=== PATIENT | male | born 1985 | race Caucasian/White ===

== ENCOUNTER 2016-11-22 16:17 | Emergency (ER) | payer OTHER ==
[2016-11-22] MEDS ORDERED: METOCLOPRAMIDE 5 MG/ML 2 ML VIAL IVP STA (17:25)
[2016-11-22] MEDS ORDERED: SODIUM CHLORIDE 0.9% 1,000 ML IV STA (17:25)
[2016-11-22] MEDS ORDERED: SODIUM CHLORIDE 0.9% 500 ML IV STA (17:25)
--- NOTE | 2016-11-22 17:53 | ED ---
Nausea/Vomiting/Diarrhea HPI - General Chief complaint: Nausea/Vomiting/Diarrhea Stated complaint: Fever, Vomiting Time Seen by Provider: 11/22/16 17:15 Source: patient, RN notes reviewed Mode of arrival: ambulatory Limitations: no limitations - History of Present Illness Initial comments: 31-year-old male presents emergency Department chief complaint nausea vomiting for last 1-2 weeks. Patient states every morning he vomits. Patient states that he does have occasional vomiting throughout the day but states it's on and off. Patient has no abdominal pain. Patient states that he feels very achy and has had hot and cold flashes though he does not have a thermometer and did not know he had a fever. Patient has a temp of 100.9. Patient denies any dysuria or hematuria. He did have a few episodes of diarrhea but very intermittent. Patient denies any cough or cold-like symptoms denies any chest pain or palpitations. Patient had no prior abdominal surgeries. - Related Data Previous Rx's Medication Instructions Recorded Promethazine [Phenergan] 25 mg PO Q6HR #10 tablet 11/22/16 Allergies Allergy/AdvReac Type Severity Reaction Status Date / Time ondansetron Allergy Rash/Hives Verified 11/22/16 18:24 [From Zofran (as hydrochloride)] Review of Systems ROS Statement: Those systems with pertinent positive or pertinent negative responses have been documented in the HPI. ROS Other: All systems not noted in ROS Statement are negative. Past Medical History Past Medical History: No Reported History History of Any Multi-Drug Resistant Organisms: None Reported Past Surgical History: No Surgical Hx Reported Past Psychological History: No Psychological Hx Reported Smoking Status: Current every day smoker Past Alcohol Use History: Occasional Past Drug Use History: None Reported General Exam Limitations: no limitations General appearance: alert, in no apparent distress Head exam: Present: atraumatic, normocephalic, normal inspection Eye exam: Present: normal appearance, PERRL, EOMI. Absent: scleral icterus, conjunctival injection, periorbital swelling ENT exam: Present: normal exam, normal oropharynx, mucous membranes moist Neck exam: Present: normal inspection, full ROM. Absent: tenderness, meningismus, lymphadenopathy Respiratory exam: Present: normal lung sounds bilaterally. Absent: respiratory distress, wheezes, rales, rhonchi, stridor Cardiovascular Exam: Present: regular rate, normal rhythm, normal heart sounds. Absent: systolic murmur, diastolic murmur, rubs, gallop, clicks GI/Abdominal exam: Present: soft, normal bowel sounds. Absent: distended, tenderness, guarding, rebound, rigid Back exam: Absent: CVA tenderness (R), CVA tenderness (L) Neurological exam: Present: alert, oriented X3, CN II-XII intact Skin exam: Present: warm, dry, intact, normal color. Absent: rash Course Vital Signs 11/22/16 11/22/16 11/22/16 16:46 17:53 19:00 Temperature 100.9 F H 101.3 F H 99.5 F Pulse Rate 94 85 80 Respiratory 20 18 16 Rate Blood Pressure 130/81 131/78 127/65 O2 Sat by Pulse 97 97 96 Oximetry Medical Decision Making - Medical Decision Making 31-year-old male presented for nausea morning primarily. Patient's lab work does show mild pancreatitis those have mostly complaints this time. Patient does drink alcohol states he has not been drinking as much as usual. Patient advised to stop drinking alcohol increase his fluid intake. Patient be discharged with Phenergan as he has an ALLERGY to Zofran. Return parameters were discussed. - Lab Data Result diagrams: 11/22/16 18:00 11/22/16 18:00 Lab Results 11/22/16 11/22/16 11/22/16 Range/Units 18:00 18:00 18:00 WBC 8.6 (3.8-10.6) k/uL RBC 5.74 (4.30-5.90) m/uL Hgb 17.8 H (13.0-17.5) gm/dL Hct 50.9 (39.0-53.0) % MCV 88.8 (80.0-100.0) fL MCH 31.0 (25.0-35.0) pg MCHC 34.9 (31.0-37.0) g/dL RDW 14.4 (11.5-15.5) % Plt Count 235 (150-450) k/uL Neutrophils % 59 % Lymphocytes % 30 % Monocytes % 4 % Eosinophils % 2 % Basophils % 1 % Neutrophils # 5.0 (1.3-7.7) k/uL Lymphocytes # 2.6 (1.0-4.8) k/uL Monocytes # 0.4 (0-1.0) k/uL Eosinophils # 0.2 (0-0.7) k/uL Basophils # 0.1 (0-0.2) k/uL Sodium 137 (137-145) mmol/L Potassium 4.2 (3.5-5.1) mmol/L Chloride 104 (98-107) mmol/L Carbon Dioxide 22 (22-30) mmol/L Anion Gap 11 mmol/L BUN 9 (9-20) mg/dL Creatinine 0.85 (0.66-1.25) mg/dL Est GFR (MDRD) Af Amer >60 (>60 ml/min/1.73 sqM) Est GFR (MDRD) Non-Af >60 (>60 ml/min/1.73 sqM) Glucose 91 (74-99) mg/dL Calcium 8.8 (8.4-10.2) mg/dL Total Bilirubin 0.7 (0.2-1.3) mg/dL AST 50 (17-59) U/L ALT 53 (21-72) U/L Alkaline Phosphatase 114 (38-126) U/L Total Protein 7.5 (6.3-8.2) g/dL Albumin 3.9 (3.5-5.0) g/dL Amylase 178 H (30-110) U/L Lipase 670 H (23-300) U/L Urine Color Dark Yellow Urine Appearance Clear (Clear) Urine pH 7.0 (5.0-8.0) Ur Specific [place] 1.028 (1.001-1.035) Urine Protein 1+ H (Negative) Urine Glucose (UA) Negative (Negative) Urine Ketones 2+ H (Negative) Urine Blood Negative (Negative) Urine Nitrite Negative (Negative) Urine Bilirubin 1+ H (Negative) Urine Urobilinogen 4.0 (<2.0) mg/dL Ur Leukocyte Esterase Trace H (Negative) Urine RBC <1 (0-5) /hpf Urine WBC 2 (0-5) /hpf Ur Squamous Epith Cells <1 (0-4) /hpf Urine Mucus Moderate H (None) /hpf Urine Opiates Screen Not Detected (NotDetected) Ur Oxycodone Screen Not Detected (NotDetected) Urine Methadone Screen Not Detected (NotDetected) Ur Propoxyphene Screen Not Detected (NotDetected) Ur Barbiturates Screen Not Detected (NotDetected) U Tricyclic Antidepress Not Detected (NotDetected) Ur Phencyclidine Scrn Not Detected (NotDetected) Ur Amphetamines Screen Not Detected (NotDetected) U Methamphetamines Scrn Not Detected (NotDetected) U Benzodiazepines Scrn Not Detected (NotDetected) Urine Cocaine Screen Not Detected (NotDetected) U Marijuana (THC) Screen Detected H (NotDetected) Serum Alcohol mg/dL 11/22/16 Range/Units 18:00 WBC (3.8-10.6) k/uL RBC (4.30-5.90) m/uL Hgb (13.0-17.5) gm/dL Hct (39.0-53.0) % MCV (80.0-100.0) fL MCH (25.0-35.0) pg MCHC (31.0-37.0) g/dL RDW (11.5-15.5) % Plt Count (150-450) k/uL Neutrophils % % Lymphocytes % % Monocytes % % Eosinophils % % Basophils % % Neutrophils # (1.3-7.7) k/uL Lymphocytes # (1.0-4.8) k/uL Monocytes # (0-1.0) k/uL Eosinophils # (0-0.7) k/uL Basophils # (0-0.2) k/uL Sodium (137-145) mmol/L Potassium (3.5-5.1) mmol/L Chloride (98-107) mmol/L Carbon Dioxide (22-30) mmol/L Anion Gap mmol/L BUN (9-20) mg/dL Creatinine (0.66-1.25) mg/dL Est GFR (MDRD) Af Amer (>60 ml/min/1.73 sqM) Est GFR (MDRD) Non-Af (>60 ml/min/1.73 sqM) Glucose (74-99) mg/dL Calcium (8.4-10.2) mg/dL Total Bilirubin (0.2-1.3) mg/dL AST (17-59) U/L ALT (21-72) U/L Alkaline Phosphatase (38-126) U/L Total Protein (6.3-8.2) g/dL Albumin (3.5-5.0) g/dL Amylase (30-110) U/L Lipase (23-300) U/L Urine Color Urine Appearance (Clear) Urine pH (5.0-8.0) Ur Specific [place] (1.001-1.035) Urine Protein (Negative) Urine Glucose (UA) (Negative) Urine Ketones (Negative) Urine Blood (Negative) Urine Nitrite (Negative) Urine Bilirubin (Negative) Urine Urobilinogen (<2.0) mg/dL Ur Leukocyte Esterase (Negative) Urine RBC (0-5) /hpf Urine WBC (0-5) /hpf Ur Squamous Epith Cells (0-4) /hpf Urine Mucus (None) /hpf Urine Opiates Screen (NotDetected) Ur Oxycodone Screen (NotDetected) Urine Methadone Screen (NotDetected) Ur Propoxyphene Screen (NotDetected) Ur Barbiturates Screen (NotDetected) U Tricyclic Antidepress (NotDetected) Ur Phencyclidine Scrn (NotDetected) Ur Amphetamines Screen (NotDetected) U Methamphetamines Scrn (NotDetected) U Benzodiazepines Scrn (NotDetected) Urine Cocaine Screen (NotDetected) U Marijuana (THC) Screen (NotDetected) Serum Alcohol <10 mg/dL Disposition Clinical Impression: Acute pancreatitis, Nausea & vomiting Disposition: HOME SELF-CARE Condition: Stable Instructions: Acute Nausea and Vomiting (ED), Pancreatitis (ED) Additional Instructions: Please return to the Emergency Department if symptoms worsen or any other concerns. Prescriptions: Promethazine [Phenergan] 25 mg PO Q6HR #10 tablet Referrals: None,Stated [Primary Care Provider] - 1-2 days Time of Disposition: 19:22
[2016-11-22] MEDS ORDERED: ACETAMINOPHEN TAB 500 MG TAB PO STA (18:02)
[2016-11-22 18:15] LABS: Basophils # (A) 0.1 k/uL (0-0.2); Basophils % (A) 1 %; CH 30.8; CHCM 34.8; Eosinophils # (A) 0.2 k/uL (0-0.7); Eosinophils % (A) 2 %; HCT 50.9 % (39.0-53.0); HDW 3.02; HGB 17.8 gm/dL (13.0-17.5); Luc # (Auto) 0.32; Luc % (Auto) 4; Lymphocytes # (A) 2.6 k/uL (1.0-4.8); Lymphocytes % (A) 30 %; MCHC 34.9 g/dL (31.0-37.0); MCV 88.8 fL (80.0-100.0); Mean Platelet Volume 7.2; Monocytes # (A) 0.4 k/uL (0-1.0); Monocytes % (A) 4 %; Neutrophils % (A) 59 %; RBC 5.74 m/uL (4.30-5.90); RDW 14.4 % (11.5-15.5); WBC 8.6 k/uL (3.8-10.6); WBC (Perox) 8.22
[2016-11-22 18:25] LABS: Appearance,Urine Clear (Clear); Bilirubin,Urine 1+ (Negative); Glucose,Urine (UA) Negative (Negative); Ketones,Urine 2+ (Negative); Leukocyte Esterase,Urine Trace (Negative); Mucus,Urine Moderate /hpf; Nitrite,Urine Negative (Negative); Particle Count 6963; Protein,Urine 1+ (Negative); RBC,Urine <1 /hpf (0-5); Specific Gravity,Urine 1.028 (1.001-1.035); Squamous Epithelial Cell,Urine <1 /hpf (0-4); UA Billing (MACRO vs. MICRO) MICRO; WBC,Urine 2 /hpf (0-5)
[2016-11-22 18:26] LABS: ALT 53 U/L (21-72); AST 50 U/L (17-59); Alkaline Phosphatase 114 U/L (38-126); Amylase 178 U/L (30-110); Anion Gap 11 mmol/L; Blood Urea Nitrogen 9 mg/dL (9-20); Calcium 8.8 mg/dL (8.4-10.2); Carbon Dioxide 22 mmol/L (22-30); Chloride 104 mmol/L (98-107); Glucose 91 mg/dL (74-99); Non-African American GFR(MDRD) >60 (>60 ml/min/1.73 sqM); Potassium 4.2 mmol/L (3.5-5.1); Sodium 137 mmol/L (137-145); Total Bilirubin 0.7 mg/dL (0.2-1.3); Total Protein 7.5 g/dL (6.3-8.2)
[2016-11-22] MEDS ORDERED: RX INFO: IV CONTRAST WAS GIVEN 1 EACH MISC MISCELLANE PRN (18:27)
[2016-11-22 19:01] VITALS: RESP 16
--- NOTE | 2016-11-22 19:12 | CT ---
EXAMINATION TYPE: CT abdomen pelvis w con DATE OF EXAM: 11/22/2016 COMPARISON: NONE HISTORY: Fever, nausea and vomiting. CT DLP: 606.60 mGycm Automated exposure control for dose reduction was used. TECHNIQUE: Helical acquisition of images was performed from the lung bases through the pelvis. CONTRAST: Performed without Oral Contrast and with IV Contrast, patient injected with 100 mL of Omnipaque 300. FINDINGS: There is subsegmental atelectasis at the posterior lung bases. There is no pleural effusion. There is a 2 cm hypodensity in the anterior right lobe of the liver consistent with a cyst. Bile duct s are not dilated. The spleen is enlarged and measures 15 cm. There is no pancreatic mass. There is no adrenal mass. Kidneys show satisfactory contrast opacification. There is no hydronephrosi s. There is no retroperitoneal adenopathy. Bladder distends smoothly. There is no pelvic mass. I see no intestinal wall thickening. There are no dilated loops. Appendix is not definitely seen. There is no sign of appendicitis. The bony structures are intact. IMPRESSION: SMALL HEPATIC CYST. MILD SUBSEGMENTAL ATELECTASIS AT THE LUNG BASES. APPENDIX IS NOT SEEN. NO SIGN OF APPENDICITIS. MILD SPLENOMEGALY.
[2016-11-22 19:43] VITALS: BP 125/78; PULSE 70; TEMP 99
== END 2016-11-22 19:41 | disposition home or self-care (01) ==
LOC: EC 16:17
DX: K85.90 Acute pancreatitis without necrosis or infection, unspecified (principal); F17.200 Nicotine dependence, unspecified, uncomplicated; Z88.8 Allergy status to other drugs, medicaments and biological substances
CPT/HCPCS: 99284; 96360; 36415; 80053; 82150; 83690; 85025; 81001; 80306; 80320; 74177; Q9967

== ENCOUNTER 2017-10-19 22:51 | Emergency (ER) | payer OTHER ==
[2017-10-19 23:02] VITALS: BP 145/81; PULSE 90; RESP 16; TEMP 98.5
[2017-10-19] MEDS ORDERED: KETOROLAC 30 MG/ML 1 ML VIAL IM STA (23:33)
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
== END 2017-10-19 23:54 | disposition home or self-care (01) ==
LOC: EC 22:51
DX: M77.11 Lateral epicondylitis, right elbow (principal); T21.12XA Burn of first degree of abdominal wall, initial encounter; F17.200 Nicotine dependence, unspecified, uncomplicated; Z88.8 Allergy status to other drugs, medicaments and biological substances; X10.2XXA Contact with fats and cooking oils, initial encounter; Y93.G3 Activity, cooking and baking
CPT/HCPCS: 99283; 96372; J1885

== ENCOUNTER 2020-07-20 02:27 | Emergency (ER) | payer OTHER ==
[2020-07-20 02:32] VITALS: RESP 18; TEMP 97.5
[2020-07-20] MEDS ORDERED: NITROGLYCERIN SL TABS 0.4 MG TAB SUBLINGUAL STA (02:44)
--- NOTE | 2020-07-20 02:46 | ED ---
Chest Pain HPI - General Chief Complaint: Chest Pain Stated Complaint: Chest pain Time Seen by Provider: 07/20/20 02:43 Source: patient Mode of arrival: ambulatory Limitations: no limitations - History of Present Illness MD Complaint: chest pain -: hour(s) Onset: during rest, associated with drug use Pain Location: left chest Pain Radiation: LUE Severity: severe Quality: aching Consistency: constant Improves With: nothing Worsens With: nothing Treatments Prior to Arrival: none - Related Data Previous Rx's Medication Instructions Recorded Ibuprofen [Motrin] 600 mg PO Q8HR PRN #30 tab 11/22/16 Promethazine [Phenergan] 25 mg PO Q6HR #10 tablet 11/22/16 LORazepam [Ativan] 1 mg PO TID 3 Days #5 tab 07/20/20 Allergies Allergy/AdvReac Type Severity Reaction Status Date / Time ondansetron Allergy Rash/Hives Verified 07/20/20 02:32 [From Zofran (as hydrochloride)] Review of Systems ROS Statement: Those systems with pertinent positive or pertinent negative responses have been documented in the HPI. ROS Other: All systems not noted in ROS Statement are negative. Constitutional: Denies: fever, chills, weakness Respiratory: Denies: cough, dyspnea, wheezes Cardiovascular: Reports: chest pain. Denies: palpitations, edema, syncope Gastrointestinal: Denies: abdominal pain, nausea, vomiting Genitourinary: Denies: dysuria, hematuria Musculoskeletal: Denies: back pain Skin: Denies: rash Neurological: Denies: headache, weakness, numbness EKG Findings - EKG Results: EKG: interpreted by EMERSON ELLISONL, sinus rhythm (Rate 97 bpm), normal axis, normal QRS, normal ST/T Past Medical History Past Medical History: No Reported History History of Any Multi-Drug Resistant Organisms: None Reported Past Surgical History: No Surgical Hx Reported Past Psychological History: No Psychological Hx Reported Smoking Status: Current every day smoker Past Alcohol Use History: Occasional Past Drug Use History: Marijuana General Exam Limitations: no limitations General appearance: alert, in no apparent distress Head exam: Present: atraumatic, normocephalic Eye exam: Present: normal appearance. Absent: scleral icterus, conjunctival injection ENT exam: Present: normal oropharynx Neck exam: Present: normal inspection, full ROM. Absent: tenderness Respiratory exam: Present: normal lung sounds bilaterally. Absent: respiratory distress, wheezes, rales, rhonchi, stridor, chest wall tenderness Cardiovascular Exam: Present: regular rate, normal rhythm, normal heart sounds. Absent: systolic murmur, diastolic murmur, rubs, gallop GI/Abdominal exam: Present: soft. Absent: distended, tenderness, guarding, rebound, rigid, mass Extremities exam: Present: normal inspection, normal capillary refill. Absent: pedal edema, calf tenderness Back exam: Present: normal inspection. Absent: CVA tenderness (R), CVA tenderness (L) Neurological exam: Present: alert Skin exam: Present: warm, dry, intact, normal color. Absent: rash Course Vital Signs 07/20/20 07/20/20 02:30 03:37 Temperature 97.5 F L Pulse Rate 108 H 88 Respiratory 18 18 Rate Blood Pressure 151/108 141/93 O2 Sat by Pulse 97 97 Oximetry Chest Pain MDM - MDM Following the studies, I went and reevaluated the patient, who stated that all of his symptoms had resolved. I did state that usually with chest pain associated with some passive my medic use, we recommend admission for telemetry monitoring, serial cardiac enzymes, but the patient states that he is feeling we ll and wants go home. He will return should any symptoms recur. Disposition Clinical Impression: Chest pain Disposition: HOME SELF-CARE Condition: Good Instructions (If sedation given, give patient instructions): Chest Pain (ED) Prescriptions: LORazepam [Ativan] 1 mg PO TID 3 Days #5 tab Is patient prescribed a controlled substance at d/c from ED?: No Referrals: None,Stated [Primary Care Provider] - 1-2 days
[2020-07-20] MEDS ORDERED: LORazepam 2 MG/ML INJ IV STA (02:54)
[2020-07-20] MEDS ORDERED: SODIUM CHLORIDE 0.9% 1,000 ML IV ONE (02:54)
[2020-07-20 02:58] LABS: Basophils % (A) 0 %; Eosinophils # (A) 0.2 k/uL (0-0.7); Eosinophils % (A) 1 %; HCT 50.9 % (39.0-53.0); Lymphocytes # (A) 1.4 k/uL (1.0-4.8); Lymphocytes % (A) 10 %; MCH 30.3 pg (25.0-35.0); MCHC 33.4 g/dL (31.0-37.0); MCV 90.5 fL (80.0-100.0); Monocytes # (A) 0.7 k/uL (0-1.0); Monocytes % (A) 5 %; Neutrophils # (A) 11.3 k/uL (1.3-7.7); Neutrophils % (A) 82 %; Platelet Count 214 k/uL (150-450); RBC 5.63 m/uL (4.30-5.90); RDW 14.7 % (11.5-15.5); WBC 13.9 k/uL (3.8-10.6)
[2020-07-20 03:12] LABS: Partial Thromboplastin Time 23.5 sec (22.0-30.0); Prothrombin Time 10.5 sec (9.0-12.0)
--- NOTE | 2020-07-20 03:12 | XR ---
EXAM: XR Chest, 2 Views CLINICAL HISTORY: ITS.REASON XR Reason: Chest Pain TECHNIQUE: Frontal and lateral views of the chest. COMPARISON: No relevant prior studies available. FINDINGS: Lungs: No focal consolidation. The pulmonary vasculature demonstrates no significant radiographic abnormality. Pleural space: Unremarkable. No pneumothorax. No large pleural effusion. Heart: Unremarkable. No cardiomegaly. Mediastinum: Unremarkable. No significant abnormality identified. The trachea is midline. Bones/joints: Unremarkable. IMPRESSION: No focal consolidation or acute cardiopulmonary process identified.
[2020-07-20 03:21] LABS: ALT 77 U/L (4-49); AST 100 U/L (17-59); African American GFR (CKD) >90 (>60 ml/min/1.73 sqM); Albumin 4.8 g/dL (3.5-5.0); Alkaline Phosphatase 109 U/L (38-126); Amylase 66 U/L (30-110); Anion Gap 14 mmol/L; Blood Urea Nitrogen 11 mg/dL (9-20); Calcium 10.1 mg/dL (8.4-10.2); Carbon Dioxide 23 mmol/L (22-30); Chloride 99 mmol/L (98-107); Glucose 113 mg/dL (74-99); Lipase 110 U/L (23-300); Magnesium 1.5 mg/dL (1.6-2.3); Non-African American GFR(CKD) >90 (>60 ml/min/1.73 sqM); Potassium 3.1 mmol/L (3.5-5.1); Sodium 136 mmol/L (137-145); Total Protein 8.9 g/dL (6.3-8.2)
[2020-07-20] MEDS ORDERED: POTASSIUM BICARBONATE/CIT AC 20 MEQ TABLET.EFF PO STA (03:23)
[2020-07-20 03:39] VITALS: BP 141/93; PULSE 88
[2020-07-20 03:44] LABS: D-Dimer 0.8 mg/L FEU (<0.60)
--- NOTE | 2020-07-20 04:38 | CT ---
EXAM: CT Angiography Chest With Intravenous Contrast CLINICAL HISTORY: ITS.REASON CT Reason: chest pain, possible PE TECHNIQUE: Axial computed tomographic angiography images of the chest with intravenous contrast. CTDI is 11.6 mGy and DLP is 454.2 mGy-cm. This CT exam was performed using one or more of the following dose reduction techniques: automated exposure control, adjustment of the mA and/or kV according to patient size, and/or use of iterative reconstruction technique. MIP reconstructed images were created and reviewed. COMPARISON: No relevant prior studies available. FINDINGS: Limitations: There is respiratory artifact which degrades image quality on multiple image slices and limits evaluation of the distal subsegmental pulmonary artery branches, where affected. Pulmonary arteries: Accounting for limitations with respiratory artifact, there is no evidence for pulmonary embolism. Aorta: No acute findings. No thoracic aortic aneurysm. Lungs: See below. Pleural space: Subsegmental atelectatic changes noted in the posterior left costophrenic margin. No focal consolidation. No significant effusion. No pneumothorax. Heart: Unremarkable. No cardiomegaly. No significant pericardial effusion. Bones/joints: No acute fracture. No dislocation. Soft tissues: Unremarkable. Lymph nodes: Unremarkable. No enlarged lymph nodes. IMPRESSION: 1. Accounting for limitations with respiratory artifact, there is no evidence for pulmonary embolism. 2. Subsegmental atelectatic changes noted in the posterior left costophrenic margin. No focal consolidation. No pleural effusion or pneumothorax.
== END 2020-07-20 05:27 | disposition home or self-care (01) ==
LOC: EC 02:27
DX: R07.89 Other chest pain (principal); F17.200 Nicotine dependence, unspecified, uncomplicated; F12.90 Cannabis use, unspecified, uncomplicated
CPT/HCPCS: 36415; 93005; 85379; 80053; 82150; 83690; 83735; 84484; 85025; 85610; 85730; 71046; 71275; 99285; 96374; 96361; J2060; Q9967

== ENCOUNTER 2020-10-07 05:09 | Emergency (ER) | payer OTHER ==
[2020-10-07 05:18] VITALS: TEMP 97.7
[2020-10-07] MEDS ORDERED: ONDANSETRON 4 MG/2 ML VIAL IVP STA (05:24)
[2020-10-07] MEDS ORDERED: SODIUM CHLORIDE 0.9% 1,000 ML IV STA ×3 (05:24→06:29)
[2020-10-07] MEDS ORDERED: MORPHINE SULFATE 4 MG/ML SYRINGE IV STA (05:24)
--- NOTE | 2020-10-07 05:24 | ED ---
Abdominal Pain HPI - General Chief Complaint: Abdominal Pain Stated Complaint: Abd Pain Source: patient Mode of arrival: ambulatory Limitations: no limitations - Related Data Previous Rx's Medication Instructions Recorded Ibuprofen [Motrin] 600 mg PO Q8HR PRN #30 tab 11/22/16 Promethazine [Phenergan] 25 mg PO Q6HR #10 tablet 11/22/16 LORazepam [Ativan] 1 mg PO TID 3 Days #5 tab 07/20/20 Amoxic-Pot Clav 875-125Mg 1 tab PO Q12HR #20 tablet 10/07/20 [Augmentin 875-125] Prochlorperazine [Compazine] 10 mg PO Q8H PRN #30 tab 10/07/20 Allergies Allergy/AdvReac Type Severity Reaction Status Date / Time ondansetron Allergy Rash/Hives Verified 10/07/20 05:17 [From Zofran (as hydrochloride)] Review of Systems ROS Statement: Those systems with pertinent positive or pertinent negative responses have been documented in the HPI. ROS Other: All systems not noted in ROS Statement are negative. Past Medical History Past Medical History: No Reported History History of Any Multi-Drug Resistant Organisms: None Reported Past Surgical History: No Surgical Hx Reported Past Psychological History: ADD/ADHD, Anxiety Smoking Status: Current every day smoker Past Alcohol Use History: Occasional Past Drug Use History: Marijuana General Exam Limitations: no limitations Course Vital Signs 10/07/20 05:11 Temperature 97.7 F Pulse Rate 106 H Respiratory 24 Rate Blood Pressure 132/92 O2 Sat by Pulse 98 Oximetry Medical Decision Making - Lab Data Result diagrams: 10/07/20 05:27 10/07/20 05:27 Lab Results 10/07/20 10/07/20 10/07/20 Range/Units 05:27 05:27 05:27 WBC 10.8 H (3.8-10.6) k/uL RBC 6.06 H (4.30-5.90) m/uL Hgb 18.9 H (13.0-17.5) gm/dL Hct 56.0 H (39.0-53.0) % MCV 92.5 (80.0-100.0) fL MCH 31.2 (25.0-35.0) pg MCHC 33.7 (31.0-37.0) g/dL RDW 15.4 (11.5-15.5) % Plt Count 232 (150-450) k/uL MPV 7.4 Neutrophils % 72 % Lymphocytes % 18 % Monocytes % 6 % Eosinophils % 1 % Basophils % 0 % Neutrophils # 7.8 H (1.3-7.7) k/uL Lymphocytes # 2.0 (1.0-4.8) k/uL Monocytes # 0.7 (0-1.0) k/uL Eosinophils # 0.2 (0-0.7) k/uL Basophils # 0.1 (0-0.2) k/uL Sodium 145 (137-145) mmol/L Potassium 4.1 (3.5-5.1) mmol/L Chloride 109 H (98-107) mmol/L Carbon Dioxide 23 (22-30) mmol/L Anion Gap 13 mmol/L BUN 10 (9-20) mg/dL Creatinine 0.90 (0.66-1.25) mg/dL Est GFR (CKD-EPI)AfAm >90 (>60 ml/min/1.73 sqM) Est GFR (CKD-EPI)NonAf >90 (>60 ml/min/1.73 sqM) Glucose 107 H (74-99) mg/dL Plasma Lactic Acid [place] (0.7-2.0) mmol/L Calcium 9.3 (8.4-10.2) mg/dL Total Bilirubin 0.7 (0.2-1.3) mg/dL AST 51 (17-59) U/L ALT 29 (4-49) U/L Alkaline Phosphatase 115 (38-126) U/L Total Protein 8.3 H (6.3-8.2) g/dL Albumin 4.7 (3.5-5.0) g/dL Amylase 309 H* (30-110) U/L Lipase 1968 H (23-300) U/L Urine Color Dark Yellow Urine Appearance Cloudy (Clear) Urine pH 6.0 (5.0-8.0) Ur Specific [place] 1.031 (1.001-1.035) Urine Protein 2+ H (Negative) Urine Glucose (UA) Negative (Negative) Urine Ketones Trace H (Negative) Urine Blood Negative (Negative) Urine Nitrite Negative (Negative) Urine Bilirubin Negative (Negative) Urine Urobilinogen 3.0 (<2.0) mg/dL Ur Leukocyte Esterase Negative (Negative) Urine RBC 1 (0-5) /hpf Urine WBC 1 (0-5) /hpf Ur Squamous Epith Cells 1 (0-4) /hpf Amorphous Sediment Rare H (None) /hpf Urine Bacteria Rare H (None) /hpf Hyaline Casts 3 H (0-2) /lpf Urine Mucus Many H (None) /hpf 10/07/20 Range/Units 05:27 WBC (3.8-10.6) k/uL RBC (4.30-5.90) m/uL Hgb (13.0-17.5) gm/dL Hct (39.0-53.0) % MCV (80.0-100.0) fL MCH (25.0-35.0) pg MCHC (31.0-37.0) g/dL RDW (11.5-15.5) % Plt Count (150-450) k/uL MPV Neutrophils % % Lymphocytes % % Monocytes % % Eosinophils % % Basophils % % Neutrophils # (1.3-7.7) k/uL Lymphocytes # (1.0-4.8) k/uL Monocytes # (0-1.0) k/uL Eosinophils # (0-0.7) k/uL Basophils # (0-0.2) k/uL Sodium (137-145) mmol/L Potassium (3.5-5.1) mmol/L Chloride (98-107) mmol/L Carbon Dioxide (22-30) mmol/L Anion Gap mmol/L BUN (9-20) mg/dL Creatinine (0.66-1.25) mg/dL Est GFR (CKD-EPI)AfAm (>60 ml/min/1.73 sqM) Est GFR (CKD-EPI)NonAf (>60 ml/min/1.73 sqM) Glucose (74-99) mg/dL Plasma Lactic Acid [place] 1.6 (0.7-2.0) mmol/L Calcium (8.4-10.2) mg/dL Total Bilirubin (0.2-1.3) mg/dL AST (17-59) U/L ALT (4-49) U/L Alkaline Phosphatase (38-126) U/L Total Protein (6.3-8.2) g/dL Albumin (3.5-5.0) g/dL Amylase (30-110) U/L Lipase (23-300) U/L Urine Color Urine Appearance (Clear) Urine pH (5.0-8.0) Ur Specific [place] (1.001-1.035) Urine Protein (Negative) Urine Glucose (UA) (Negative) Urine Ketones (Negative) Urine Blood (Negative) Urine Nitrite (Negative) Urine Bilirubin (Negative) Urine Urobilinogen (<2.0) mg/dL Ur Leukocyte Esterase (Negative) Urine RBC (0-5) /hpf Urine WBC (0-5) /hpf Ur Squamous Epith Cells (0-4) /hpf Amorphous Sediment (None) /hpf Urine Bacteria (None) /hpf Hyaline Casts (0-2) /lpf Urine Mucus (None) /hpf Disposition Clinical Impression: Abdominal pain, Pancreatitis, Diverticulitis Disposition: HOME SELF-CARE Condition: Good Instructions (If sedation given, give patient instructions): Pancreatitis (ED), Diverticulitis (ED) Prescriptions: Amoxic-Pot Clav 875-125Mg [Augmentin 875-125] 1 tab PO Q12HR #20 tablet Prochlorperazine [Compazine] 10 mg PO Q8H PRN #30 tab PRN Reason: Nausea Is patient prescribed a controlled substance at d/c from ED?: No Referrals: None,Stated [Primary Care Provider] - 1-2 days
[2020-10-07 05:49] LABS: Basophils # (A) 0.1 k/uL (0-0.2); Basophils % (A) 0 %; Eosinophils # (A) 0.2 k/uL (0-0.7); Eosinophils % (A) 1 %; HGB 18.9 gm/dL (13.0-17.5); Lymphocytes % (A) 18 %; MCH 31.2 pg (25.0-35.0); MCHC 33.7 g/dL (31.0-37.0); MCV 92.5 fL (80.0-100.0); Mean Platelet Volume 7.4; Monocytes # (A) 0.7 k/uL (0-1.0); Monocytes % (A) 6 %; Neutrophils # (A) 7.8 k/uL (1.3-7.7); Neutrophils % (A) 72 %; Platelet Count 232 k/uL (150-450); RBC 6.06 m/uL (4.30-5.90); RDW 15.4 % (11.5-15.5); WBC 10.8 k/uL (3.8-10.6)
[2020-10-07 05:57] LABS: Amorphous Sediment,Urine Rare /hpf; Appearance,Urine Cloudy (Clear); Bacteria,Urine Rare /hpf; Bilirubin,Urine Negative (Negative); Blood,Urine Negative (Negative); Color,Urine Dark Yellow; Glucose,Urine (UA) Negative (Negative); Hyaline Casts,Urine 3 /lpf (0-2); Ketones,Urine Trace (Negative); Leukocyte Esterase,Urine Negative (Negative); Mucus,Urine Many /hpf; Nitrite,Urine Negative (Negative); Protein,Urine 2+ (Negative); RBC,Urine 1 /hpf (0-5); Specific Gravity,Urine 1.031 (1.001-1.035); Squamous Epithelial Cell,Urine 1 /hpf (0-4); WBC,Urine 1 /hpf (0-5)
[2020-10-07 06:02] LABS: ALT 29 U/L (4-49); AST 51 U/L (17-59); African American GFR (CKD) >90 (>60 ml/min/1.73 sqM); Albumin 4.7 g/dL (3.5-5.0); Alkaline Phosphatase 115 U/L (38-126); Anion Gap 13 mmol/L; Blood Urea Nitrogen 10 mg/dL (9-20); Calcium 9.3 mg/dL (8.4-10.2); Carbon Dioxide 23 mmol/L (22-30); Chloride 109 mmol/L (98-107); Glucose 107 mg/dL (74-99); Lipase 1968 U/L (23-300); Non-African American GFR(CKD) >90 (>60 ml/min/1.73 sqM); Potassium 4.1 mmol/L (3.5-5.1); Sodium 145 mmol/L (137-145); Total Bilirubin 0.7 mg/dL (0.2-1.3); Total Protein 8.3 g/dL (6.3-8.2)
--- NOTE | 2020-10-07 06:15 | CT ---
EXAM: CT Abdomen and Pelvis With Intravenous Contrast CLINICAL HISTORY: Abdominal pain. TECHNIQUE: Axial computed tomography images of the abdomen and pelvis with intravenous contrast. CTDI is 17.87 mGy and DLP is 931.5 mGy-cm. This CT exam was performed using one or more of the following dose reduction techniques: automated exposure control, adjustment of the mA and/or kV according to patient size, and/or use of iterative reconstruction technique. COMPARISON: 11/22/16 FINDINGS: Lung bases: Unremarkable. No mass. No consolidation. ABDOMEN: Liver: Hepatic steatosis. 2 cm cyst again seen within the left hepatic lobe. Gallbladder and bile ducts: Unremarkable. No calcified stones. No ductal dilation. Pancreas: Unremarkable. No mass. No ductal dilation. Spleen: Unremarkable. No splenomegaly. Adrenals: Unremarkable. No mass. Kidneys and ureters: Unremarkable. No solid mass. No hydronephrosis. Stomach and bowel: No evidence of bowel obstruction. No small bowel wall thickening. Under distention of the colon limits evaluation for colonic wall thickening. PELVIS: Appendix: No findings to suggest acute appendicitis. Bladder: Unremarkable. No mass. Reproductive: Unremarkable as visualized. ABDOMEN and PELVIS: Intraperitoneal space: Unremarkable. No free air. No significant fluid collection. Bones/joints: No acute fracture. No dislocation. Soft tissues: Unremarkable. Vasculature: Unremarkable. No abdominal aortic aneurysm. Lymph nodes: Unremarkable. No enlarged lymph nodes. IMPRESSION: No definite acute inflammatory or obstructive process within the abdomen or pelvis. Hepatic steatosis. Under distention of the colon limits evaluation for colonic wall thickening. Underlying low-grade infectious/inflammatory colitis is not excluded.
[2020-10-07 06:25] LABS: Amylase 309 U/L (30-110)
[2020-10-07] MEDS ORDERED: AMOXIC-POT CLAV 875MG STARTER PACK 2 TAB BTL PO STA ×2 (06:29→06:38)
[2020-10-07] MEDS ORDERED: AMOXIC-POT CLAV 875-125MG 1 EACH TAB PO STA ×2 (06:29→06:38)
[2020-10-07] MEDS ORDERED: traMADol 50 MG TAB PO STA (06:29)
[2020-10-07] MEDS ORDERED: traMADol 50 MG STARTER PACK 3 TAB BTL PO STA ×2 (06:29→06:38)
[2020-10-07] MEDS ORDERED: ACET/COD 300 MG/30 MG STARTER PACK 6 TAB BTL PO STA (06:38)
[2020-10-07 06:53] VITALS: BP 137/96; PULSE 89; RESP 16
== END 2020-10-07 07:02 | disposition home or self-care (01) ==
LOC: EC 05:09
DX: K85.90 Acute pancreatitis without necrosis or infection, unspecified (principal); K57.32 Diverticulitis of large intestine without perforation or abscess without bleeding; F17.200 Nicotine dependence, unspecified, uncomplicated; F41.9 Anxiety disorder, unspecified; Z79.899 Other long term (current) drug therapy; Z88.8 Allergy status to other drugs, medicaments and biological substances
CPT/HCPCS: 99284 ×2; 36415; 80053; 82150; 83605; 83690; 85025; 81001; 74177; J2270; Q9967

== ENCOUNTER 2020-10-20 13:19 | Observation (INO) | payer OTHER ==
[2020-10-20] MEDS ORDERED: SODIUM CHLORIDE 0.9% 1,000 ML IV STA ×2 (14:32→16:33)
[2020-10-20] MEDS ORDERED: KETOROLAC 15 MG/ML 1 ML VIAL IVP STA (14:52)
[2020-10-20] MEDS ORDERED: LORazepam 2 MG/ML INJ IV STA (14:52)
--- NOTE | 2020-10-20 14:55 | ED ---
Abdominal Pain HPI - General Chief Complaint: Abdominal Pain Stated Complaint: abdominal pain Time Seen by Provider: 10/20/20 14:23 Source: patient Mode of arrival: ambulatory Limitations: no limitations - History of Present Illness Initial Comments: 35-year-old male with history of pancreatitis presents emergency Department with a chief complaint of abdominal pain. He states his abdominal for approximately 2 weeks and it feels like his pancreatitis is recurrent. Reports most of the pain is located in the right side of the abdomen. Patient reports he was evaluated about 2 weeks ago and the emergency department and was advised to stop drinking alcohol. Patient reports he does not drink daily, [place] on almost daily basis, mostly beer. He reports some nausea but denies any vomiting or diarrhea. He denies any chest pain or shortness of breath. Denies any fevers chills. - Related Data Home Medications Medication Instructions Recorded Confirmed Ibuprofen [Motrin Ib] 400 mg PO Q8H PRN 10/20/20 10/20/20 Previous Rx's Medication Instructions Recorded Amoxic-Pot Clav 875-125Mg 1 tab PO Q12HR #20 tablet 10/07/20 [Augmentin 875-125] Allergies Allergy/AdvReac Type Severity Reaction Status Date / Time ondansetron Allergy Rash/Hives Verified 10/20/20 16:16 [From Zofran (as hydrochloride)] Review of Systems ROS Statement: Those systems with pertinent positive or pertinent negative responses have been documented in the HPI. ROS Other: All systems not noted in ROS Statement are negative. Past Medical History Past Medical History: No Reported History Additional Past Medical History / Comment(s): panceratitis History of Any Multi-Drug Resistant Organisms: None Reported Past Surgical History: No Surgical Hx Reported Past Psychological History: ADD/ADHD, Anxiety Smoking Status: Current every day smoker Past Alcohol Use History: Occasional Past Drug Use History: Marijuana General Exam Limitations: no limitations General appearance: alert, in no apparent distress Head exam: Present: atraumatic, normocephalic, normal inspection Eye exam: Present: normal appearance, PERRL, EOMI Pupils: Present: normal accommodation ENT exam: Present: normal exam, normal oropharynx, mucous membranes moist, TM's normal bilaterally, normal external ear exam Neck exam: Present: normal inspection, full ROM. Absent: tenderness Respiratory exam: Present: normal lung sounds bilaterally. Absent: respiratory distress, wheezes, rales, rhonchi, stridor, chest wall tenderness, accessory muscle use Cardiovascular Exam: Present: regular rate, normal rhythm, normal heart sounds. Absent: systolic murmur, diastolic murmur, rubs GI/Abdominal exam: Present: soft, tenderness (Right lower quadrant tenderness. Positive McBurney point tenderness.), normal bowel sounds. Absent: distended, guarding, rebound, rigid Extremities exam: Present: normal inspection, full ROM, normal capillary refill. Absent: tenderness, pedal edema, joint swelling Back exam: Present: normal inspection, full ROM. Absent: tenderness, CVA tenderness (R), CVA tenderness (L), muscle spasm, paraspinal tenderness, vertebral tenderness Neurological exam: Present: alert, oriented X3 Psychiatric exam: Present: normal affect, normal mood Skin exam: Present: warm, dry, intact, normal color Course Vital Signs 10/20/20 14:02 Temperature 97.9 F Pulse Rate 81 Respiratory 20 Rate Blood Pressure 128/82 O2 Sat by Pulse 99 Oximetry Medical Decision Making - Medical Decision Making 35-year-old male with history of pancreatitis presents emergency Department with a chief complaint of abdominal pain. On physical examination, right lower quadrant tenderness. There is a concern for appendicitis. CT of abdomen and pelvis obtained shows no acute appendicitis, possible proximal colitis. CBC reveals mild leukocytosis of 11.2, likely reactive. CMP reveals a BUN of 5. Lipase 952. Patient will be admitted for pancreatitis. I spoke with Dr. Cheung who will admit. Case discussed with . Nothing by mouth. - Lab Data Result diagrams: 10/20/20 15:06 10/20/20 15:45 Lab Results 10/20/20 10/20/20 10/20/20 Range/Units 15:06 15:06 15:45 WBC 11.2 H (3.8-10.6) k/uL RBC 5.70 (4.30-5.90) m/uL Hgb 18.1 H (13.0-17.5) gm/dL Hct 53.0 (39.0-53.0) % MCV 93.1 (80.0-100.0) fL MCH 31.7 (25.0-35.0) pg MCHC 34.1 (31.0-37.0) g/dL RDW 14.6 (11.5-15.5) % Plt Count 208 (150-450) k/uL MPV 7.9 Neutrophils % 75 % Lymphocytes % 17 % Monocytes % 5 % Eosinophils % 1 % Basophils % 0 % Neutrophils # 8.4 H (1.3-7.7) k/uL Lymphocytes # 1.9 (1.0-4.8) k/uL Monocytes # 0.6 (0-1.0) k/uL Eosinophils # 0.1 (0-0.7) k/uL Basophils # 0.0 (0-0.2) k/uL Sodium 137 (137-145) mmol/L Potassium 4.0 (3.5-5.1) mmol/L Chloride 107 (98-107) mmol/L Carbon Dioxide 25 (22-30) mmol/L Anion Gap 5 mmol/L BUN 5 L (9-20) mg/dL Creatinine 0.79 (0.66-1.25) mg/dL Est GFR (CKD-EPI)AfAm >90 (>60 ml/min/1.73 sqM) Est GFR (CKD-EPI)NonAf >90 (>60 ml/min/1.73 sqM) Glucose 102 H (74-99) mg/dL Calcium 8.7 (8.4-10.2) mg/dL Total Bilirubin 0.6 (0.2-1.3) mg/dL AST 32 (17-59) U/L ALT 25 (4-49) U/L Alkaline Phosphatase 65 (38-126) U/L Total Protein 6.2 L (6.3-8.2) g/dL Albumin 3.3 L (3.5-5.0) g/dL Lipase 953 H (23-300) U/L Urine Color Yellow Urine Appearance Clear (Clear) Urine pH 7.5 (5.0-8.0) Ur Specific [place] 1.029 (1.001-1.035) Urine Protein Trace H (Negative) Urine Glucose (UA) Negative (Negative) Urine Ketones 1+ H (Negative) Urine Blood Negative (Negative) Urine Nitrite Negative (Negative) Urine Bilirubin Negative (Negative) Urine Urobilinogen 6.0 (<2.0) mg/dL Ur Leukocyte Esterase Trace H (Negative) Urine RBC <1 (0-5) /hpf Urine WBC 1 (0-5) /hpf Urine Bacteria Rare H (None) /hpf Urine Mucus Rare H (None) /hpf Disposition Clinical Impression: Pancreatitis, Abdominal pain Disposition: ADMITTED IP TO THIS HOSP Condition: Fair Instructions (If sedation given, give patient instructions): Abdominal Pain (ED) Is patient prescribed a controlled substance at d/c from ED?: No Referrals: None,Stated [Primary Care Provider] - 1-2 days Time of Disposition: 17:10
[2020-10-20 15:15] LABS: Basophils % (A) 0 %; Eosinophils # (A) 0.1 k/uL (0-0.7); Eosinophils % (A) 1 %; HGB 18.1 gm/dL (13.0-17.5); Lymphocytes # (A) 1.9 k/uL (1.0-4.8); Lymphocytes % (A) 17 %; MCH 31.7 pg (25.0-35.0); MCHC 34.1 g/dL (31.0-37.0); MCV 93.1 fL (80.0-100.0); Mean Platelet Volume 7.9; Monocytes # (A) 0.6 k/uL (0-1.0); Monocytes % (A) 5 %; Neutrophils # (A) 8.4 k/uL (1.3-7.7); Neutrophils % (A) 75 %; Platelet Count 208 k/uL (150-450); RDW 14.6 % (11.5-15.5); WBC 11.2 k/uL (3.8-10.6)
--- NOTE | 2020-10-20 16:01 | CT ---
EXAMINATION TYPE: CT abdomen pelvis w con DATE OF EXAM: 10/20/2020 COMPARISON: CT abdomen and pelvis October 07, 2020 and November 22, 2016 HISTORY: Lower abdominal pain right greater than left CT DLP: 838.7 mGycm, Automated Exposure Control for Dose Reduction was Utilized. CONTRAST: CT scan of the abdomen and pelvis is performed without oral and with IV Contrast, patient injected wi th 100 mL of Isovue 300. FINDINGS: LUNG BASES: Dependent atelectasis. Mild bibasilar linear scarring and/or atelectasis. LIVER/GB: Liver is diffusely low dense consistent with diffuse fatty infiltration. Persistent 1.7 cm peripheral hypodense lesion medial segment left hepatic lobe axial image 25 favors benign thin-walled cyst unchanged from prior studies. PANCREAS: No significant abnormality is seen. SPLEEN: Stable small splenule anterior splenic hilum. ADRENALS: No significant abnormality is seen. KIDNEYS: Symmetric cortical medullary uptake and excretion without concerning renal mass or hydroneph rosis seen bilaterally. BOWEL: Suboptimal evaluation without enteric contrast and patient having little intra-abdominal fat. No suspicious small or large bowel dilatation. Low-lying cecum into the right pelvis redemonstrated. Terminal ileum appears within normal limits. No inflammatory change at base of cecum identified. Norm al appearing appendix posteriorly from cecum extends centrally for reference coronal image 39. Fluid in colon near hepatic flexure could reflect product of diarrhea and/or mild uncomplicated colitis, co rrelate clinically. PROSTATE/SEMINAL VESICLES: Scattered left-sided pelvic phleboliths. Prostate gland normal in size. LYMPH NODES: No greater than 1cm abdominal or pelvic lymph nodes are appreciated. OSSEOUS STRUCTURES: Transitional type vertebra lumbosacral junction. OTHER: No significant additional abnormality is seen. IMPRESSION: No CT evidence for acute appendicitis. Possible mild proximal uncomplicated acute coliti s and/or diarrhea. Correlate clinically.
[2020-10-20 16:13] LABS: ALT 25 U/L (4-49); AST 32 U/L (17-59); African American GFR (CKD) >90 (>60 ml/min/1.73 sqM); Albumin 3.3 g/dL (3.5-5.0); Alkaline Phosphatase 65 U/L (38-126); Anion Gap 5 mmol/L; Blood Urea Nitrogen 5 mg/dL (9-20); Calcium 8.7 mg/dL (8.4-10.2); Carbon Dioxide 25 mmol/L (22-30); Chloride 107 mmol/L (98-107); Glucose 102 mg/dL (74-99); Lipase 953 U/L (23-300); Non-African American GFR(CKD) >90 (>60 ml/min/1.73 sqM); Sodium 137 mmol/L (137-145); Total Bilirubin 0.6 mg/dL (0.2-1.3); Total Protein 6.2 g/dL (6.3-8.2)
[2020-10-20] MEDS ORDERED: MORPHINE SULFATE 4 MG/ML SYRINGE IVP STA (16:32)
[2020-10-20 16:34] LABS: Appearance,Urine Clear (Clear); Bacteria,Urine Rare /hpf; Bilirubin,Urine Negative (Negative); Blood,Urine Negative (Negative); Color,Urine Yellow; Glucose,Urine (UA) Negative (Negative); Ketones,Urine 1+ (Negative); Leukocyte Esterase,Urine Trace (Negative); Mucus,Urine Rare /hpf; Nitrite,Urine Negative (Negative); PH, Urine 7.5 (5.0-8.0); Protein,Urine Trace (Negative); RBC,Urine <1 /hpf (0-5); Specific Gravity,Urine 1.029 (1.001-1.035); WBC,Urine 1 /hpf (0-5)
[2020-10-20] MEDS ORDERED: NALOXONE 0.4 MG/ML 1 ML VIAL IV PRN (16:56)
[2020-10-20] MEDS ORDERED: MORPHINE SULFATE 4 MG/ML SYRINGE IV PRN (16:56)
[2020-10-20] MEDS ORDERED: HYDROcodone/APAP 5-325MG 1 EACH TAB PO PRN (18:34)
[2020-10-20] MEDS ORDERED: TEMAZEPAM 15 MG CAP PO PRN (18:34)
--- NOTE | 2020-10-20 19:25 | XR ---
EXAMINATION TYPE: XR chest 1V portable DATE OF EXAM: 10/20/2020 COMPARISON: 07/20/2020 HISTORY: Pneumonia. Chest pain TECHNIQUE: Single view FINDINGS: There is no heart failure. Lungs are clear of consolidation. There is some coarsening of th e lung markings at the right lung base. There are no hilar masses. Bony thorax is intact. IMPRESSION: Slight increased right lower lobe lung markings compared to old exam that could be some m ild interstitial pneumonia. Normal heart.
[2020-10-20] MEDS: SODIUM CHLORIDE 0.9% 1,000 ML IV SCH (19:41)
[2020-10-20] MEDS: HYDROmorphone 0.5 MG/0.5 ML SYRINGE IVP PRN ×2 (19:43→23:03)
[2020-10-20] MEDS: HEPARIN SODIUM,PORCINE/PF 5,000 UNIT/0.5 ML SYRINGE SQ SCH (19:44)
[2020-10-20] MEDS: LEVOFLOXACIN 500MG-D5W PMX 500 MG in DEXTROSE/WATER 1 100ML.BAG IVPB SCH (19:46)
[2020-10-20] MEDS: LORazepam 2 MG/ML INJ IV PRN (19:49)
--- NOTE | 2020-10-20 21:37 | HP ---
HISTORY AND PHYSICAL CHIEF COMPLAINT: Abdominal pain. HISTORY OF PRESENT ILLNESS: This 35-year-old gentleman with a past medical history of ADD, ADHD, history of anxiety, not being followed by a primary physician in the outpatient setting, apparently had an episode of pancreatitis about 1 1/2 weeks ago. Subsequently, the [place] and the patient was apparently drinking and on the way back the patient had an episode of severe abdominal pain which radiated to the back and the patient was evaluated in [place] and recommended admission but the patient refused and came to [place] and because the last 2 days because of lack of improvement the patient came to [facility] and admitted for further evaluation and treatment. The pain is mostly in the upper abdomen, left to right. There is no associated nausea, vomiting, diarrhea. The patient had lipase elevated up to 953. The patient also had a CT scan of the abdomen and pelvis which showed possible mild proximal uncomplicated acute colitis was suspected. There is no history of fever, rigors, chills at this time. PAST MEDICAL HISTORY: History of ADD, ADHD, anxiety, recent pancreatitis. MEDICATIONS ARE: Motrin p.r.n. Augmentin b.i.d. ALLERGIES: ONDANSETRON. FAMILY HISTORY: No history of heart attacks or strokes in the family. SOCIAL HISTORY: History of smoking, alcohol as mentioned earlier. History of THC. REVIEW OF SYSTEMS: ENT No history of diminished hearing or vision. CARDIOVASCULAR No angina or palpitations. RESPIRATORY No cough, no hemoptysis. GI As mentioned earlier. No dysuria or hematuria. NERVOUS No numbness or weakness. ALLERGY/IMMUNOLOGY No asthma or hayfever. MUSCULOSKELETAL As mentioned earlier. HEMATOLOGY/ONCOLOGY Negative. ENDOCRINE No history of diabetes or hypothyroidism. CONSTITUTIONAL As mentioned earlier. DERMATOLOGY Negative. RHEUMATOLOGY Negative, PSYCHIATRY As mentioned earlier. PHYSICAL EXAMINATION: The patient is alert and oriented x3. Pulse is 81, blood pressure 128/82, respiration 20, temperature 97.9, pulse ox 99% on room air. HEENT: Conjunctivae normal. Oral mucosa moist. NECK: No jugular venous distention. No lymph node enlargement. CARDIOVASCULAR: S1, S2, muffled. No S3, no S4, RESPIRATORY: Diminished breath sounds at the bases. No rhonchi, no crackles. ABDOMEN: Soft. Mild diffuse tenderness in the upper abdomen present. Otherwise, no guarding, no mass palpable. LEGS: No edema, no swelling. NERVOUS SYSTEM: Higher functions mentioned earlier. Moves all four limbs. No focal motor or sensory deficits. LYMPHATICS: No lymph node in neck or axilla. SKIN: No rash. JOINTS: No active deforming arthropathy. LAB STUDIES: WBC 11.2, sodium 137, potassium 4 and lipase is 953. ASSESSMENT: 1. Acute pancreatitis, severe. 2. Severe upper abdominal pain. 3. Failure of outpatient treatment. 4. Increased WBC. 5. Possible acute colitis on the CT scan with proximal colitis. 6. History of nicotine dependence. 7. History of ETOH. 8. History of ADD/ADHD. 9. History of anxiety. 10.History of THC. 11.FULL CODE. RECOMMENDATION: In this 35-year-old gentleman with a past history of multiple problems, we will continue to monitor. We will admit the patient, pain medications, proton pump inhibitors. I would also recommend empiric antibiotics in the form of Levaquin and Flagyl. Otherwise, for the presumed colitis, repeat labs. [facility] protocol. Prognosis guarded because of multiple complex medical issues. Alcohol cessation and rehab was also recommended. Follow with primary physician closely in the outpatient setting. Prognosis guarded. Further recommendations to follow. MMODL / IJN: [id number] /
[2020-10-20] MEDS: NICOTINE 14MG/24HR PATCH TRANSDERM SCH (22:01)
[2020-10-20] MEDS: metroNIDAZOLE-NS PMX 500 MG in SALINE 1 100ML.BAG IVPB SCH (22:01)
[2020-10-20] MEDS: PANTOPRAZOLE 40 MG/10 ML VIAL IV SCH (22:02)
[2020-10-21 02:14] LABS: Amphetamine Screen,Urine Detected (NotDetected); Barbiturate Screen,Urine Not Detected (NotDetected); Benzodiazepines Screen,Urine Detected (NotDetected); Cocaine Screen,Urine Not Detected (NotDetected); Methadone Screen, Urine Not Detected (NotDetected); Opiate Screen,Urine Detected (NotDetected); Oxycodone Screen, Urine Not Detected (NotDetected); Phencyclidine Screen,Urine Not Detected (NotDetected); Tricyclic Antidepressant,Urine Not Detected (NotDetected); Urn Cannabinoid Scrn Detected (NotDetected)
[2020-10-21] MEDS: HYDROmorphone 0.5 MG/0.5 ML SYRINGE IVP PRN ×6 (02:59→21:31)
[2020-10-21] MEDS: metroNIDAZOLE-NS PMX 500 MG in SALINE 1 100ML.BAG IVPB SCH ×3 (04:20→21:36)
[2020-10-21 07:43] LABS: Magnesium 1.8 mg/dL (1.6-2.3)
[2020-10-21] MEDS: PANTOPRAZOLE 40 MG/10 ML VIAL IV SCH ×2 (07:44→21:31)
[2020-10-21] MEDS: HEPARIN SODIUM,PORCINE/PF 5,000 UNIT/0.5 ML SYRINGE SQ SCH ×2 (07:45→21:31)
[2020-10-21] MEDS: FOLIC ACID 1 MG TAB PO SCH (07:45)
[2020-10-21] MEDS: MULTIVITAMINS, THERA 1 EACH TAB PO SCH (07:45)
[2020-10-21] MEDS: NICOTINE 14MG/24HR PATCH TRANSDERM SCH (07:45)
[2020-10-21] MEDS: SODIUM CHLORIDE 0.9% 1,000 ML IV SCH ×2 (07:46→19:58)
[2020-10-21] MEDS ORDERED: PANTOPRAZOLE 40 MG/10 ML VIAL IV SCH (09:00)
[2020-10-21 12:13] LABS: Basophils # (A) 0.02 X 10*3/uL (0.00-0.10); Basophils % (A) 0.3 %; Eosinophils # (A) 0.19 X 10*3/uL (0.04-0.35); Eosinophils % (A) 3.3 %; HCT 50.8 % (39.6-50.0); HGB 16.2 g/dL (13.0-17.0); Lymphocytes # (A) 1.75 X 10*3/uL (0.90-5.00); Lymphocytes % (A) 30.2 %; MCH 30.3 pg (27.0-32.0); MCHC 31.9 g/dL (32.0-37.0); Mean Platelet Volume 11.2 fL (9.5-12.2); Monocytes % (A) 8.6 %; Neutrophils # (A) 3.32 X 10*3/uL (1.80-7.70); Neutrophils % (A) 57.3 %; Platelet Count 170 X 10*3/uL (140-440); RBC 5.35 X 10*6/uL (4.40-5.60); RDW 14.9 % (11.5-14.5)
[2020-10-21] MEDS ORDERED: LORazepam 2 MG/ML INJ IV PRN ×3 (14:28)
[2020-10-21] MEDS ORDERED: THIAMINE 100 MG/ML 2 ML VIAL IM STA (14:28)
[2020-10-21] MEDS: LORazepam 2 MG/ML INJ IV PRN ×2 (15:15→23:00)
--- NOTE | 2020-10-21 15:16 | PN ---
PROGRESS NOTE DATE OF SERVICE: 10/21/2020 INTERVAL HISTORY: This is a 35-year-old gentleman who was admitted with acute severe pancreatitis, also had possible acute left-sided colitis also. The patient is complaining of abdominal pain. No chest pain. No palpitations. No fever. The most recent amylase and lipase is not available at this time. The patient had multiple substances possibly in the urine testing. COVID-19 is negative. No chest pain. No palpitations. No fever. PHYSICAL EXAMINATION: GENERAL: Patient is alert and oriented times three. VITAL SIGNS: Pulse 76, blood pressure 126/70, respirations 14, temperature 98.4, pulse ox 97% on room air. HEENT: Conjunctivae normal. Oral mucosa moist. NECK: No jugular venous distention. RESPIRATORY: Breath sounds diminished at the bases. No rhonchi, no crackles. HEART: S1 and S2, muffled. ABDOMEN: Soft, mild diffuse tenderness present. No guarding, no rigidity, no masses palpable. EXTREMITIES: No edema, no swelling. NERVOUS: No focal deficits. LABS: WBC 5.8, hemoglobin 16.2. Other labs are noted. Albumin is 3.3. Urine drug screen positive for amphetamine, methamphetamine, benzodiazepines, THC and opiates. ASSESSMENT: 1. Acute severe pancreatitis. 2. Severe abdominal pain with failure of outpatient treatment. 3. Possible acute colitis on the CT scan on the left side with proximal colitis involving the cecum. 4. Increased WBC. 5. History of nicotine dependence. 6. History of ETOH. 7. Next ADD ADHD. 8. History of anxiety. 9. History of THC. 10.FULL CODE. RECOMMENDATIONS AND DISCUSSION: Continue current management, continue symptomatic treatment, continue CIWA protocol. Continue with empiric antibiotics. Repeat labs will be ordered in the morning. Please note that the patient has had at least 2 ER services recently prior to the episodes of pain. Avoid alcohol. CIWA protocol. Guarded prognosis. Further recommendations to follow. MMODL / IJN: [id number] /
[2020-10-21] MEDS: THIAMINE 100 MG TAB PO SCH (16:17)
[2020-10-21 19:41] VITALS: RESP 18
[2020-10-21 19:57] LABS: Chol/HDL Ratio 2.93; LDL Cholesterol,Calculated 61.8 mg/dL (0.0-131.0); VLDL Calculation 19.2 mg/dL (5.00-40.00)
[2020-10-21] MEDS: LEVOFLOXACIN 500MG-D5W PMX 500 MG in DEXTROSE/WATER 1 100ML.BAG IVPB SCH (19:58)
[2020-10-21 20:24] LABS: African American GFR (CKD) 142.7 (60.0-200.0); Albumin 3.8 g/dL (3.80-4.90); Albumin/Globulin Ratio 1.31 (1.60-3.17); Anion Gap 16.9 mmol/L (4.00-12.00); BUN/Creat Ratio 8.57 Ratio (12.00-20.00); Calcium 8.2 mg/dL (8.7-10.3); Carbon Dioxide 13.1 mmol/L (21.6-31.8); Globulin 2.9 g/dL (1.6-3.3); Non-African American GFR(CKD) 123.1 (60.0-200.0); Potassium 4.7 mmol/L (3.5-5.5); Total Bilirubin 0.6 mg/dL (0.3-1.2); Total Protein 6.7 g/dL (6.2-8.2)
--- NOTE | 2020-10-21 20:46 | US ---
EXAMINATION TYPE: US abdomen complete DATE OF EXAM: 10/21/2020 COMPARISON: NONE CLINICAL HISTORY: Abdominal pain. Exam done portable. EXAM MEASUREMENTS: Liver Length: 19.8 cm Gallbladder Wall: 0.2 cm CBD: 0.3 cm Spleen: 10.8 cm Right Kidney: 11.4 x 4.8 x 4.9 cm Left Kidney: 10.5 x 6.4 x 4.6 cm Pancreas: wnl Liver: enlarged, 2.1 x 1.4 x 2.3cm cystic lesion anterior left lobe Gallbladder: wnl Evidence for sonographic Back's sign: no CBD: wnl Spleen: 1.4cm splenule Right Kidney: wnl Left Kidney: wnl Upper IVC: wnl Abd Aorta: prox and mid wnl, distal obscured by overlying midline bowel gas The liver is homogenous. The intrahepatic portion of the IVC and proximal abdominal aorta are within normal limits. There is no evidence of cholelithiasis. Common bile duct is unremarkable. The visu alized portions of the pancreas are homogenous. The spleen is unremarkable. Kidneys are symmetric a nd free of hydronephrosis. No renal lesions are seen. IMPRESSION: There is oval-shaped 2.3 x 1.4 cm cyst in the anterior liver. No dilated ducts. No gallstones or dila jacy ducts. No evidence of renal mass or obstruction.
[2020-10-22] MEDS: HYDROmorphone 0.5 MG/0.5 ML SYRINGE IVP PRN ×3 (03:37→10:25)
[2020-10-22] MEDS: metroNIDAZOLE-NS PMX 500 MG in SALINE 1 100ML.BAG IVPB SCH ×2 (03:37→12:19)
[2020-10-22] MEDS: SODIUM CHLORIDE 0.9% 1,000 ML IV SCH (07:14)
[2020-10-22] MEDS: HEPARIN SODIUM,PORCINE/PF 5,000 UNIT/0.5 ML SYRINGE SQ SCH (07:14)
[2020-10-22] MEDS: NICOTINE 14MG/24HR PATCH TRANSDERM SCH (07:14)
[2020-10-22] MEDS: THIAMINE 100 MG TAB PO SCH (07:15)
[2020-10-22] MEDS: FOLIC ACID 1 MG TAB PO SCH (07:15)
[2020-10-22] MEDS: MULTIVITAMINS, THERA 1 EACH TAB PO SCH (07:15)
[2020-10-22] MEDS: PANTOPRAZOLE 40 MG/10 ML VIAL IV SCH (07:16)
[2020-10-22 08:40] VITALS: BP 129/82; PULSE 76; TEMP 97.9
--- NOTE | 2020-10-22 08:52 | P.CONS ---
History of Present Illness - Reason for Consult Consult date: 10/21/20 Pancreatitis Requesting physician: Nir Cheung - Chief Complaint Abdominal pain - History of Present Illness 35-year-old male with a medical history significant for pancreatitis and polysubstance abuse who presented to the hospital due to abdominal pain. Patient reports "stomach pain" described as diffuse across his abdomen, sharp and severe in nature. He reports 2 prior episodes of pancreatitis and previously refused hospitalization for colitis. He reports some nausea but no vomiting. Bowel movements generally 1-2 times per day he denies any bloody or black tarry stool. On presentation patient was found to have WBC 11.2, hemoglobin 18, platelet count 208,000, total bilirubin 0.6, alkaline phosphatase 65, AST 32 and ALT 25 with a lipase of 953. Computed tomography scan of the abdomen negative for any evidence of acute appendicitis with a possible proximal colitis. He does report a history of pancreatitis in his mother. Review of Systems REVIEW OF SYSTEMS: CONSTITUTIONAL: Denies any fevers, chills, weight change or fatigue. CARDIOVASCULAR: Denies any chest pain, palpitations high or low blood pressures RESPIRATORY: Denies any shortness of breath, hemoptysis or cough. GENITOURINARY: No dysuria or hematuria. MUSCULOSKELETAL: No weakness reported. SKIN: Denies any new rashes or lesions, jaundice or pallor. PSYCHIATRIC: Denies any depression or anxiety. NEUROLOGY: Denies headache, denies any new focal deficits. EARS/NOSE/THROAT: No recent hearing change, congestion, nasal discharge or sore throat. EYES: No pain in eyes, discharge or change in vision. GASTROINTESTINAL: As per HPI. Past Medical History Past Medical History: No Reported History Additional Past Medical History / Comment(s): panceratitis History of Any Multi-Drug Resistant Organisms: None Reported Past Surgical History: No Surgical Hx Reported Past Anesthesia/Blood Transfusion Reactions: No Reported Reaction Past Psychological History: ADD/ADHD, Anxiety Smoking Status: Current every day smoker Past Alcohol Use History: Occasional Past Drug Use History: Marijuana Additional History: Family history: Patient reports family history of colitis in his mother. Medications and Allergies Home Medications Medication Instructions Recorded Confirmed Type Amoxic-Pot Clav 875-125Mg 1 tab PO Q12HR #20 tablet 10/07/20 10/20/20 Rx [Augmentin 875-125] Ibuprofen [Motrin Ib] 400 mg PO Q8H PRN 10/20/20 10/20/20 History Allergies Allergy/AdvReac Type Severity Reaction Status Date / Time ondansetron Allergy Rash/Hives Verified 10/20/20 16:16 [From Zofran (as hydrochloride)] Physical Exam Vitals: Vital Signs Temp Pulse Pulse Resp BP BP Pulse Ox 10/21/20 07:00 98.4 F 76 14 120/77 97 10/21/20 02:42 79 18 10/21/20 02:00 97.5 F L 63 18 107/67 97 10/20/20 22:01 79 18 10/20/20 21:30 97.8 F 79 18 130/82 96 10/20/20 19:56 84 18 129/80 98 10/20/20 14:02 97.9 F 81 20 128/82 99 Intake and Output 10/20/20 10/21/20 10/21/20 22:59 06:59 14:59 Other: Voiding Method Toilet Toilet # Voids 1 2 Weight 90.718 kg On physical examination, patient appears comfortable in no apparent distress. HEAD: Normocephalic, atraumatic. EYES: No scleral icterus. No conjunctival injection. MOUTH: No lesions, tongue midline. NECK: Trachea midline, no gross abnormalities. CHEST: Clear to auscultation with no wheezing or rhonchi appreciated. HEART: Regular rate and rhythm. ABDOMEN: Soft, mildly tender to palpation. Bowel sounds are positive. No organomegaly. No guarding or rigidity. EXTREMITIES: No pedal edema. SKIN: No rashes, no jaundice. NEUROLOGIC: Alert and oriented x3. No focal deficits. Results CBC & Chem 7: 10/21/20 05:59 10/20/20 18:46 Labs: Abnormal Lab Results - Last 24 Hours (Table) 10/20/20 10/20/20 10/20/20 Range/Units 15:06 15:06 15:45 WBC 11.2 H (3.8-10.6) k/uL Hgb 18.1 H (13.0-17.5) gm/dL Neutrophils # 8.4 H (1.3-7.7) k/uL BUN 5 L (9-20) mg/dL Glucose 102 H (74-99) mg/dL Total Protein 6.2 L (6.3-8.2) g/dL Albumin 3.3 L (3.5-5.0) g/dL Lipase 953 H (23-300) U/L Urine Protein Trace H (Negative) Urine Ketones 1+ H (Negative) Ur Leukocyte Esterase Trace H (Negative) Urine Bacteria Rare H (None) /hpf Urine Mucus Rare H (None) /hpf Urine Opiates Screen (NotDetected) Ur Amphetamines Screen (NotDetected) U Methamphetamines Scrn (NotDetected) U Benzodiazepines Scrn (NotDetected) U Marijuana (THC) Screen (NotDetected) 10/21/20 Range/Units 01:05 WBC (3.8-10.6) k/uL Hgb (13.0-17.5) gm/dL Neutrophils # (1.3-7.7) k/uL BUN (9-20) mg/dL Glucose (74-99) mg/dL Total Protein (6.3-8.2) g/dL Albumin (3.5-5.0) g/dL Lipase (23-300) U/L Urine Protein (Negative) Urine Ketones (Negative) Ur Leukocyte Esterase (Negative) Urine Bacteria (None) /hpf Urine Mucus (None) /hpf Urine Opiates Screen Detected H (NotDetected) Ur Amphetamines Screen Detected H (NotDetected) U Methamphetamines Scrn Detected H (NotDetected) U Benzodiazepines Scrn Detected H (NotDetected) U Marijuana (THC) Screen Detected H (NotDetected) CT scan - abdomen: report reviewed (Computed tomography scan of the abdomen with no evidence of acute appendicitis and some mild wall thickening of the right colon/proximal colon of unknown significance.) Assessment and Plan (1) Pancreatitis Narrative/Plan: 35-year-old male presenting with complaints of abdominal pain and found to have elevated lipase of 953 currently hospitalized for acute uncomplicated pancreatitis. Computed tomography scan of the abdomen with no evidence of complicated pancreatitis and some nonspecific findings of possible colon thickening, however patient denies any change in bowel habits, or blood per rectum. He does report family history of pancreatitis in his mother. He does report drinking prior to the episode. Current Visit: Yes Status: Acute Code(s): K85.90 - ACUTE PANCREATITIS WITHOUT NECROSIS OR INFECTION, UNSP SNOMED Code(s): 32526310 (2) Colitis Current Visit: Yes Status: Acute Code(s): K52.9 - NONINFECTIVE GASTROENTERITIS AND COLITIS, UNSPECIFIED SNOMED Code(s): 92236914 (3) Abdominal pain Current Visit: Yes Status: Acute Code(s): R10.9 - UNSPECIFIED ABDOMINAL PAIN SNOMED Code(s): 89684968 Plan: Supportive care Clear liquid diet Continue aggressive IV fluid hydration Continue pain control Ambulation as tolerated Continue broad-spectrum antibiotic therapy for possible colitis Triglyceride level, CARLITO, IgG an ultrasound of the abdomen ordered Alcohol abstinence and tobacco cessation advised Follow-up in the clinic in 2-3 weeks, can consider colonoscopy in the next 4-6 weeks for evaluation of possible colitis seen on computed tomography scan of the abdomen if patient is amenable in the outpatient setting which is been discussed with the patient length Thank you for allowing us to participate in the care of the patient
--- NOTE | 2020-10-22 11:01 | P.PN ---
Subjective Progress Note Date: 10/22/20 Principal diagnosis: Pancreatitis, abdominal pain Patient is seen lying in bed reporting abdominal pain is improved and asking for advancement in diet. Objective - Vital Signs Vital signs: Vital Signs Temp 97.9 F 10/22/20 08:00 Pulse 76 10/22/20 08:00 Resp 18 10/22/20 08:00 BP 129/82 10/22/20 08:00 Pulse Ox 94 L 10/22/20 08:00 Intake & Output 10/21/20 10/22/20 10/22/20 18:59 06:59 18:59 Other: Voiding Method Toilet # Voids 1 3 - Exam On physical examination, patient appears comfortable in no apparent distress. HEAD: Normocephalic, atraumatic. EYES: No scleral icterus. No conjunctival injection. MOUTH: No lesions, tongue midline. NECK: Trachea midline, no gross abnormalities. ABDOMEN: Soft, soft and nontender to palpation. Bowel sounds are positive. No organomegaly. No guarding or rigidity. EXTREMITIES: No pedal edema. SKIN: No rashes, no jaundice. NEUROLOGIC: Alert and oriented x3. No focal deficits. - Labs CBC & Chem 7: 10/21/20 05:59 10/20/20 18:46 Labs: Abnormal Lab Results - Last 24 Hours (Table) 10/20/20 10/21/20 Range/Units 18:46 05:59 Hct 50.8 H (39.6-50.0) % MCHC 31.9 L (32.0-37.0) g/dL RDW 14.9 H (11.5-14.5) % Chloride 112 H (96-109) mmol/L Carbon Dioxide 13.1 L (21.6-31.8) mmol/L Anion Gap 16.90 H (4.00-12.00) mmol/L BUN 6.0 L (9.0-27.0) mg/dL BUN/Creatinine Ratio 8.57 L (12.00-20.00) Ratio Calcium 8.2 L (8.7-10.3) mg/dL AST 37 H (14-35) U/L Albumin/Globulin Ratio 1.31 L (1.60-3.17) g/dL Lipase 185 H (14-60) U/L Assessment and Plan (1) Pancreatitis Narrative/Plan: 35-year-old male presenting with complaints of abdominal pain and found to have elevated lipase of 953 currently hospitalized for acute uncomplicated pancreatitis. Computed tomography scan of the abdomen with no evidence of complicated pancreatitis and some nonspecific findings of possible colon thickening, however patient denies any change in bowel habits, or blood per rectum. He does report family history of pancreatitis in his mother. He does report drinking prior to the episode. Current Visit: Yes Status: Acute Code(s): K85.90 - ACUTE PANCREATITIS WITHOUT NECROSIS OR INFECTION, UNSP SNOMED Code(s): 94913796 (2) Colitis Current Visit: Yes Status: Acute Code(s): K52.9 - NONINFECTIVE GASTROENTERITIS AND COLITIS, UNSPECIFIED SNOMED Code(s): 35311867 (3) Abdominal pain Current Visit: Yes Status: Acute Code(s): R10.9 - UNSPECIFIED ABDOMINAL PAIN SNOMED Code(s): 73225043 Plan: Supportive care Okay to advance diet as tolerated Continue aggressive IV fluid hydration Continue pain control Ambulation as tolerated Continue broad-spectrum antibiotic therapy for possible colitis Triglyceride level within normal limits, CARLITO, IgG are pending Ultrasound of the abdomen ordered with hepatic cysts seen likely benign in tristen ure, recommend 6 month follow-up with repeat ultrasound imaging Alcohol abstinence and tobacco cessation advised Follow-up in the clinic in 2-3 weeks, can consider colonoscopy in the next 4-6 weeks for evaluation of possible colitis seen on computed tomography scan of the abdomen if patient is amenable in the outpatient setting which is been discussed with the patient length Thank you for allowing us to participate in the care of the patient
[2020-10-22 12:24] LABS: Basophils # (A) 0.02 X 10*3/uL (0.00-0.10); Basophils % (A) 0.3 %; Eosinophils # (A) 0.14 X 10*3/uL (0.04-0.35); Eosinophils % (A) 2.2 %; HCT 51.8 % (39.6-50.0); HGB 16.6 g/dL (13.0-17.0); Lymphocytes # (A) 1.83 X 10*3/uL (0.90-5.00); Lymphocytes % (A) 28.6 %; MCH 30.1 pg (27.0-32.0); Monocytes # (A) 0.45 X 10*3/uL (0.20-1.00); Neutrophils # (A) 3.94 X 10*3/uL (1.80-7.70); Neutrophils % (A) 61.6 %; Platelet Count 210 X 10*3/uL (140-440); RBC 5.51 X 10*6/uL (4.40-5.60); RDW 14.4 % (11.5-14.5)
[2020-10-22 13:01] LABS: African American GFR (CKD) 142.7 (60.0-200.0); Albumin 3.8 g/dL (3.80-4.90); Albumin/Globulin Ratio 1.31 (1.60-3.17); Anion Gap 11.9 mmol/L (4.00-12.00); BUN/Creat Ratio 8.57 Ratio (12.00-20.00); Calcium 9.1 mg/dL (8.7-10.3); Carbon Dioxide 20.1 mmol/L (21.6-31.8); Globulin 2.9 g/dL (1.6-3.3); Non-African American GFR(CKD) 123.1 (60.0-200.0); Potassium 4.3 mmol/L (3.5-5.5); Total Bilirubin 0.7 mg/dL (0.3-1.2); Total Protein 6.7 g/dL (6.2-8.2)
[2020-10-22 13:08] LABS: Amylase 91 U/L (23-121)
[2020-10-22 13:09] LABS: Lipase 63 U/L (14-60)
[2020-10-22] MEDS ORDERED: metroNIDAZOLE 500 MG TAB PO SCH (16:00)
[2020-10-22] MEDS ORDERED: PANTOPRAZOLE 40 MG TABLET PO SCH (17:30)
[2020-10-22] MEDS ORDERED: LEVOFLOXACIN 500 MG TAB PO SCH (19:00)
--- NOTE | 2020-10-22 22:50 | DS ---
DISCHARGE SUMMARY DATE OF SERVICE: 10/22/2020 FINAL DIAGNOSES: 1. Acute severe pancreatitis improved. 2. Severe abdominal pain with failure of outpatient treatment. 3. Possible acute colitis of the CT scan of the left side with possible colitis involving the cecum. 4. Increased WBC. 5. History of nicotine dependence. 6. History of ETOH. 7. attention-deficit disorder, attention-deficit/hyperactivity disorder. 8. History of anxiety. 9. History of THC. 10.FULL CODE. DISCHARGE DISPOSITION: The patient discharged in stable condition with guarded prognosis. HISTORY OF PRESENT ILLNESS: This 35 -year-old gentleman with a past medical history of multiple medical problems admitted with acute severe pancreatitis. The patient also has severe abdominal pain. The patient also had features of acute colitis in the CT scan of the left side. The patient was treated with IV antibiotics. Patient improved significantly. On exam, vitals are stable. Cardiovascular S1, S2. Abdomen soft. Nervous system: No focal deficits. DISCHARGE ADVICE AND MEDICATIONS: 1. Diet is cardiac diet. 2. Activity limited until followup. 3. Follow up with Dr. Macedo in 2-3 days. 4. Labs, CBC, BMP, amylase, lipase. 5. Follow with Gastroenterology as recommended. 6. Motrin p.r.n. 7. Cipro 500 mg p.o. b.i.d. for 5 days. 8. Flagyl 500 mg p.o. t.i.d. for 5 days. 9. Habitrol 14 daily. 10.No alcohol, no smoking. 11.Multivitamins 1 p.o. daily. 12.[place] 5 mg q.6 p.r.n. 13.Protonix 40 mg p.o. daily. Once again, the patient discharged in stable condition with guarded prognosis. MMODL / IJN: [id number] /
[2020-10-23 13:22] LABS: IgG Subclass 4 66.3 mg/dL (3.0-175.0)
[2020-10-23 13:32] LABS: IgG Subclass 3 43.1 mg/dL (11.0-85.0)
== END 2020-10-22 13:23 | disposition home or self-care (01) ==
LOC: EC 13:19 → 6NMEDSUR 16:32 → INTOOBSV 10-21 14:34 → OBSVTOIN 10-21 14:34 → UNDODISIN 10-22 13:23
PROVIDERS: ADMIT Hospitalist; ATTEND Hospitalist
DX: K85.90 Acute pancreatitis without necrosis or infection, unspecified (principal); F17.200 Nicotine dependence, unspecified, uncomplicated; F41.9 Anxiety disorder, unspecified; F90.9 Attention-deficit hyperactivity disorder, unspecified type; Z20.822 Contact with and (suspected) exposure to COVID-19; Z87.19 Personal history of other diseases of the digestive system; Z88.8 Allergy status to other drugs, medicaments and biological substances; Z83.79 Family history of other diseases of the digestive system
CPT/HCPCS: 96376 ×4; 96361 ×3; 96366 ×3; 96367; 96372 ×3; 96375 ×2; 96365; 99285; 36415; 80061; 80053 ×2; 82150 ×2; 83690 ×2; 83735; 85025 ×3; 81001; 82787; 86038; 80306; 87635; 71045; 76700; 74177; G0378 ×3; S4990 ×3; J2060 ×2; J2270; J3411; J1956 ×2; J1885; C9113 ×3; J1170 ×3; Q9967; J1644 ×3; 84478; 96374

== ENCOUNTER 2021-01-15 19:13 | Emergency (ER) | payer OTHER ==
[2021-01-15 19:47] VITALS: BP 137/85; PULSE 86; RESP 18; TEMP 98
[2021-01-15] MEDS ORDERED: ACET/COD 300 MG/30 MG STARTER PACK 6 TAB BTL PO STA (20:40)
--- NOTE | 2021-01-15 20:42 | ED ---
Skin/Abscess/FB HPI - General Chief complaint: Skin/Abscess/Foreign Body Stated complaint: wart on foot Time Seen by Provider: 01/15/21 20:20 Source: patient, RN notes reviewed Mode of arrival: ambulatory Limitations: no limitations - History of Present Illness Initial comments: This a 35-year-old male presents emergency Department chief complaint of pun cinthia short. Patient is ideal for several months that he's been putting patches on it states he's been taking lately has become more sore he states is too difficult to work he had to call off. Patient states that is not taking any other than patches were no other complaints. - Related Data Home Medications Medication Instructions Recorded Confirmed Ibuprofen [Motrin Ib] 400 mg PO Q8H PRN 10/20/20 10/20/20 Previous Rx's Medication Instructions Recorded Ciprofloxacin HCl [Cipro] 500 mg PO Q12HR #10 tablet 10/22/20 HYDROcodone/APAP 5-325MG [[place] 1 each PO Q6HR PRN #10 tab 10/22/20 5-325] Multivitamins, Thera [Multivitamin 1 each PO DAILY@1200 #30 tab 10/22/20 (formulary)] Nicotine 14Mg/24Hr Patch [Habitrol] 1 patch TRANSDERM DAILY #20 patch 10/22/20 Pantoprazole Sodium [Protonix] 40 mg PO DAILY #30 tablet. 10/22/20 metroNIDAZOLE [Flagyl] 500 mg PO TID #15 tab 10/22/20 Allergies Allergy/AdvReac Type Severity Reaction Status Date / Time ondansetron Allergy Rash/Hives Verified 01/15/21 19:45 [From Zofran (as hydrochloride)] Review of Systems ROS Statement: Those systems with pertinent positive or pertinent negative responses have been documented in the HPI. ROS Other: All systems not noted in ROS Statement are negative. Past Medical History Past Medical History: No Reported History Additional Past Medical History / Comment(s): panceratitis History of Any Multi-Drug Resistant Organisms: None Reported Past Surgical History: No Surgical Hx Reported Past Anesthesia/Blood Transfusion Reactions: No Reported Reaction Past Psychological History: ADD/ADHD, Anxiety Smoking Status: Current every day smoker Past Alcohol Use History: Occasional Past Drug Use History: Marijuana General Exam Limitations: no limitations General appearance: alert, in no apparent distress Neck exam: Present: normal inspection. Absent: tenderness, meningismus, lymphad enopathy Respiratory exam: Present: normal lung sounds bilaterally. Absent: respiratory distress, wheezes, rales, rhonchi, stridor Extremities exam: Present: other (Left foot there is a noted parameters were all tenderness and callus noted no erythema) Course Vital Signs 01/15/21 19:45 Temperature 98 F Pulse Rate 86 Respiratory 18 Rate Blood Pressure 137/85 O2 Sat by Pulse 99 Oximetry Medical Decision Making - Medical Decision Making Patient provided podiatry for possible cryotherapy will continue silk acid and return for any worsening change in symptoms. Disposition Clinical Impression: Plantar wart Disposition: HOME SELF-CARE Condition: Stable Instructions (If sedation given, give patient instructions): Plantar [place] (ED) Additional Instructions: Please return to the Emergency Department if symptoms worsen or any other concerns. Is patient prescribed a controlled substance at d/c from ED?: No Referrals: Ronny Macedo MD [Primary Care Provider] - 1-2 days Amilcar Elliott DPM [STAFF PHYSICIAN] - 1-2 days Time of Disposition: 20:42
== END 2021-01-15 21:21 | disposition home or self-care (01) ==
LOC: EC 19:13
DX: B07.0 Plantar wart (principal); F17.200 Nicotine dependence, unspecified, uncomplicated; Z88.8 Allergy status to other drugs, medicaments and biological substances
CPT/HCPCS: 99282

== ENCOUNTER 2021-01-19 23:54 | Emergency (ER) | payer OTHER ==
[2021-01-19 23:58] VITALS: BP 138/97; PULSE 71; RESP 18; TEMP 98.1
[2021-01-20] MEDS ORDERED: ACET/COD 300 MG/30 MG STARTER PACK 6 TAB BTL PO STA (00:09)
--- NOTE | 2021-01-20 00:10 | ED ---
Skin/Abscess/FB HPI - General Source: patient Mode of arrival: ambulatory <Crissy Bal - Last Filed: 01/20/21 02:26> <Josie Cunningham - Last Filed: 01/20/21 13:12> - General Chief complaint: Skin/Abscess/Foreign Body Stated complaint: LT foot wart Time Seen by Provider: 01/20/21 00:02 - History of Present Illness Initial comments: 35-year-old male patient presents to the emergency department today for evaluation of pain to the plantar surface of the left foot. States he has a wart to the area. States has been there for years. Patient states recently has flared up and is causing a lot of pain. States he is unable to work with it. He was seen and evaluated here was given pain medication recently. He is awaiting a referral to podiatry from his primary care physician. He has been applying patches at home. Denies fever or chills. Denies any foot swelling. Denies redness. (Crissy Bal) - Related Data Home Medications Medication Instructions Recorded Confirmed Ibuprofen [Motrin Ib] 400 mg PO Q8H PRN 10/20/20 10/20/20 Previous Rx's Medication Instructions Recorded Ciprofloxacin HCl [Cipro] 500 mg PO Q12HR #10 tablet 10/22/20 HYDROcodone/APAP 5-325MG [[place] 1 each PO Q6HR PRN #10 tab 10/22/20 5-325] Multivitamins, Thera [Multivitamin 1 each PO DAILY@1200 #30 tab 10/22/20 (formulary)] Nicotine 14Mg/24Hr Patch [Habitrol] 1 patch TRANSDERM DAILY #20 patch 10/22/20 Pantoprazole Sodium [Protonix] 40 mg PO DAILY #30 tablet. 10/22/20 metroNIDAZOLE [Flagyl] 500 mg PO TID #15 tab 10/22/20 Allergies Allergy/AdvReac Type Severity Reaction Status Date / Time ondansetron Allergy Rash/Hives Verified 01/19/21 23:58 [From Zofran (as hydrochloride)] Review of Systems ROS Other: All systems not noted in ROS Statement are negative. <Crissy Bal - Last Filed: 01/20/21 02:26> ROS Other: All systems not noted in ROS Statement are negative. <Damer,Josie A - Last Filed: 01/20/21 13:12> ROS Statement: Those systems with pertinent positive or pertinent negative responses have been documented in the HPI. Past Medical History Past Medical History: No Reported History Additional Past Medical History / Comment(s): panceratitis History of Any Multi-Drug Resistant Organisms: None Reported Past Surgical History: No Surgical Hx Reported Past Anesthesia/Blood Transfusion Reactions: No Reported Reaction Past Psychological History: ADD/ADHD, Anxiety Smoking Status: Current every day smoker Past Alcohol Use History: Occasional Past Drug Use History: Marijuana <Crissy Bal M - Last Filed: 01/20/21 02:26> General Exam General appearance: alert, in no apparent distress, other (This is a well- developed, well-nourished adult male patient in no acute distress. Vital signs upon presentation are temperature 98.1F, pulse 71, respirations 18, blood pressure 138/97, pulse ox 100% on room air.) Respiratory exam: Present: normal lung sounds bilaterally. Absent: respiratory distress, wheezes, rales, rhonchi, stridor Cardiovascular Exam: Present: regular rate, normal rhythm, normal heart sounds. Absent: systolic murmur, diastolic murmur, rubs, gallop, clicks Extremities exam: Present: full ROM, normal capillary refill, other (There is plantar wart noted to the forefoot over the plantar surface near the fourth toe. No surrounding erythema. No swelling. There is tenderness over the wart.). Absent: tenderness, pedal edema, joint swelling, calf tenderness Neurological exam: Present: alert, oriented X3, CN II-XII intact Psychiatric exam: Present: normal affect, normal mood Skin exam: Present: warm, dry, intact, normal color. Absent: rash <Crissy Bal M - Last Filed: 01/20/21 02:26> Course Vital Signs 01/19/21 23:57 Temperature 98.1 F Pulse Rate 71 Respiratory 18 Rate Blood Pressure 138/97 O2 Sat by Pulse 100 Oximetry Medical Decision Making <Crissy Bal M - Last Filed: 01/20/21 02:26> <Josie Cunningham A - Last Filed: 01/20/21 13:12> - Medical Decision Making 35-year-old male patient presented to the emergency department reporting pain to a plantar wart. Physical examination did reveal plantar wart to the forefoot. He is given a work note. Pain medication. He does have a referral pending with his primary care physician to see the sample driller. Return parameters were discussed in detail. He verbalizes understanding and agrees with this plan. My attending is Dr. Cunningham. (Crissy Bal) I was available for consultation in the emergency department. The history and physical exam were done by the midlevel provider. I was consulted for this patients care. I reviewed the case with the midlevel provider and based on their presentation of the patient, I agree with the assessment, medical decision making and plan of care as documented. Chart was dictated using [employer] dictation software. Attempts were made to correct any dictation errors however some typographical errors may persist. Patient was seen during a national state of emergency due to the Covid-19 pandemic. (Josie Cunningham) Disposition Is patient prescribed a controlled substance at d/c from ED?: No Time of Disposition: 00:10 <Crissy Bal - Last Filed: 01/20/21 02:26> <Josie Cunningham - Last Filed: 01/20/21 13:12> Clinical Impression: Plantar wart, left foot Disposition: HOME SELF-CARE Condition: Good Instructions (If sedation given, give patient instructions): Plantar [place] (ED) Additional Instructions: Follow-up with the sample driller as soon as possible. Take medication sparingly as needed for severe pain. Return for any new, worsening, or concerning symptoms. Referrals: Ronny Macedo MD [Primary Care Provider] - 1-2 days
== END 2021-01-20 00:30 | disposition home or self-care (01) ==
LOC: EC 23:54
DX: B07.0 Plantar wart (principal); F17.200 Nicotine dependence, unspecified, uncomplicated; Z88.8 Allergy status to other drugs, medicaments and biological substances
CPT/HCPCS: 99283

== ENCOUNTER 2021-02-05 22:46 | Emergency (ER) | payer OTHER ==
[2021-02-05 23:04] VITALS: BP 115/78; TEMP 98
[2021-02-06] MEDS ORDERED: traMADol 50 MG STARTER PACK 3 TAB BTL PO STA (00:26)
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
[2021-02-06 00:40] VITALS: PULSE 61; RESP 16
== END 2021-02-06 00:40 | disposition home or self-care (01) ==
LOC: EC 22:46
DX: T14.8XXA Other injury of unspecified body region, initial encounter (principal); M25.551 Pain in right hip; R20.0 Anesthesia of skin; F17.200 Nicotine dependence, unspecified, uncomplicated; Z88.8 Allergy status to other drugs, medicaments and biological substances; V49.9XXA Car occupant (driver) (passenger) injured in unspecified traffic accident, initial encounter
CPT/HCPCS: 99283

== ENCOUNTER 2021-04-10 23:36 | Emergency (ER) | payer OTHER ==
[2021-04-11 00:07] VITALS: BP 118/73; PULSE 78; RESP 15; TEMP 98.9
--- NOTE | 2021-04-11 00:44 | ED ---
Recheck HPI - General Chief Complaint: Recheck/Abnormal Lab/Rx Stated Complaint: [facility] 10 panel & BAT Time Seen by Provider: 04/11/21 00:30 Source: patient, RN notes reviewed Mode of arrival: ambulatory - History of Present Illness Initial Comments: Patient is a 35-year-old male that presents to the emergency department to get an alcohol breath test and urine drug screen. Patient notes he was sent by his employer due to concerns for possible intoxication. Patient was otherwise well- appearing in no apparent distress. Patient denied any symptoms. He denied any chest pain short of breath headache nausea vomiting diarrhea constipation fever fatigue chills. - Related Data Home Medications Medication Instructions Recorded Confirmed Ibuprofen [Motrin Ib] 400 mg PO Q8H PRN 10/20/20 10/20/20 Previous Rx's Medication Instructions Recorded Ciprofloxacin HCl [Cipro] 500 mg PO Q12HR #10 tablet 10/22/20 HYDROcodone/APAP 5-325MG [[place] 1 each PO Q6HR PRN #10 tab 10/22/20 5-325] Multivitamins, Thera [Multivitamin 1 each PO DAILY@1200 #30 tab 10/22/20 (formulary)] Nicotine 14Mg/24Hr Patch [Habitrol] 1 patch TRANSDERM DAILY #20 patch 10/22/20 Pantoprazole Sodium [Protonix] 40 mg PO DAILY #30 tablet. 10/22/20 metroNIDAZOLE [Flagyl] 500 mg PO TID #15 tab 10/22/20 Ibuprofen [Motrin] 600 mg PO Q8HR PRN #20 tab 02/06/21 Allergies Allergy/AdvReac Type Severity Reaction Status Date / Time ondansetron Allergy Rash/Hives Verified 02/05/21 23:01 [From Zofran (as hydrochloride)] Review of Systems ROS Statement: Those systems with pertinent positive or pertinent negative responses have been documented in the HPI. ROS Other: All systems not noted in ROS Statement are negative. Past Medical History Past Medical History: No Reported History Additional Past Medical History / Comment(s): panceratitis History of Any Multi-Drug Resistant Organisms: None Reported Past Surgical History: No Surgical Hx Reported Past Anesthesia/Blood Transfusion Reactions: No Reported Reaction Past Psychological History: ADD/ADHD, Anxiety Smoking Status: Current every day smoker Past Alcohol Use History: Occasional Past Drug Use History: Marijuana General Exam General appearance: alert, in no apparent distress Head exam: Present: atraumatic, normocephalic, normal inspection Eye exam: Present: normal appearance, PERRL, EOMI. Absent: scleral icterus, conjunctival injection, periorbital swelling ENT exam: Present: normal exam, mucous membranes moist Neck exam: Present: normal inspection Respiratory exam: Present: normal lung sounds bilaterally. Absent: respiratory distress, wheezes, rales, rhonchi, stridor Cardiovascular Exam: Present: regular rate, normal rhythm, normal heart sounds. Absent: systolic murmur, diastolic murmur, rubs, gallop, clicks GI/Abdominal exam: Present: soft, normal bowel sounds. Absent: distended, tenderness, guarding, rebound, rigid Extremities exam: Present: normal inspection, full ROM, normal capillary refill. Absent: tenderness, pedal edema, joint swelling, calf tenderness Neurological exam: Present: alert, oriented X3 Psychiatric exam: Present: normal affect, normal mood Skin exam: Present: warm, dry, intact, normal color. Absent: rash Course Vital Signs 04/11/21 00:03 Temperature 98.9 F Pulse Rate 78 Respiratory 15 Rate Blood Pressure 118/73 O2 Sat by Pulse 97 Oximetry Medical Decision Making - Medical Decision Making 35-year-old male sent for urine drug screen breath alcohol test by employer. Case discussed with Dr. Josue, patient discharge home. Disposition Clinical Impression: Encounter for drug screening Disposition: HOME SELF-CARE Condition: Stable Additional Instructions: Please return to the Emergency Department if symptoms worsen or any other concerns. Is patient prescribed a controlled substance at d/c from ED?: No Referrals: None,Stated [Primary Care Provider] - 1-2 days Time of Disposition: 00:44
== END 2021-04-11 00:49 | disposition home or self-care (01) ==
LOC: EC 23:36
DX: Z02.83 Encounter for blood-alcohol and blood-drug test (principal); F17.200 Nicotine dependence, unspecified, uncomplicated; Z88.8 Allergy status to other drugs, medicaments and biological substances
CPT/HCPCS: 99282

== ENCOUNTER → 2022-12-18 | Outpatient (CLI) | payer OTHER ==
--- NOTE | 2022-12-18 11:24 | XR ---
EXAMINATION TYPE: XR wrist complete RT DATE OF EXAM: 12/18/2022 11:09 AM INDICATION: Patient age:Male; 37 years old; Reason for study: M25.531; [facility]. COMPARISON: Right forearm radiograph 02/18/2016 TECHNIQUE: 4 views of the right wrist. Frontal, navicular, lateral, and oblique. FINDINGS: No acute osseous pathology, joint dislocation, or joint effusion. No evidence of any soft tissue swelling is seen. IMPRESSION: No acute osseous pathology.
--- NOTE | 2022-12-18 11:29 | XR ---
EXAMINATION TYPE: XR ankle complete LT DATE OF EXAM: 12/18/2022 COMPARISON: NONE HISTORY: Pain TECHNIQUE: 3 views of the left ankle are submitted for evaluation. FINDINGS: There is no evidence for acute fracture or dislocation. Ankle mortise is intact. Severe deg enerative changes at the talonavicular joint with large dorsal osteophyte. Soft tissues are within no rmal limits. IMPRESSION: 1. No evidence for acute fracture. 2. 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
== END | disposition home or self-care (01) ==
LOC: RADXRMAIN 10:42
PROVIDERS: ATTEND Internal Medicine
DX: M19.072 Primary osteoarthritis, left ankle and foot (principal); M25.531 Pain in right wrist

== ENCOUNTER 2022-12-30 11:51 | Emergency (ER) | payer OTHER ==
[2022-12-30] MEDS ORDERED: KETOROLAC 15 MG/ML 1 ML VIAL IM STA (12:24)
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
--- NOTE | 2022-12-30 13:46 | XR ---
EXAMINATION TYPE: XR chest 2V DATE OF EXAM: 12/30/2022 COMPARISON: 10/20/2020. HISTORY: Difficulty breathing. TECHNIQUE: Frontal and lateral views of the chest are obtained. FINDINGS: There is no focal air space opacity, pleural effusion, or pneumothorax seen. The cardiac silhouette size is within normal limits. The osseous structures are intact. IMPRESSION: No acute cardiopulmonary process.
[2022-12-30 13:55] VITALS: BP 119/73; PULSE 60; RESP 16; TEMP 97.6
== END 2022-12-30 14:02 | disposition home or self-care (01) ==
LOC: EC 11:51
DX: S60.811A Abrasion of right wrist, initial encounter (principal); S90.812A Abrasion, left foot, initial encounter; J06.9 Acute upper respiratory infection, unspecified; F12.90 Cannabis use, unspecified, uncomplicated; F17.200 Nicotine dependence, unspecified, uncomplicated; Z88.8 Allergy status to other drugs, medicaments and biological substances; V87.8XXA Person injured in other specified noncollision transport accidents involving motor vehicle (traffic), initial encounter; Y93.55 Activity, bike riding
CPT/HCPCS: 71046; 99283; 96372; J1885

== ENCOUNTER 2023-04-17 16:23 | Observation (INO) | payer OTHER ==
[2023-04-17] MEDS ORDERED: LORazepam 2 MG/ML INJ IV STA (17:46)
[2023-04-17] MEDS ORDERED: THIAMINE 100 MG/ML 2 ML VIAL IM STA (17:47)
[2023-04-17] MEDS ORDERED: SODIUM CHLORIDE 0.9% 500 ML 500 ML IV STA (17:48)
[2023-04-17] MEDS ORDERED: SODIUM CHLORIDE 0.9% 1,000 ML IV ONE (17:48)
[2023-04-17] MEDS ORDERED: LORazepam 2 MG/ML INJ IV PRN ×3 (17:48)
--- NOTE | 2023-04-17 17:52 | ED ---
Psych HPI - General Chief Complaint: Psychiatric Symptoms Stated Complaint: intoxicated alterd mental state Time Seen by Provider: 04/17/23 17:00 Source: patient Mode of arrival: wheelchair Limitations: altered mental status - History of Present Illness Initial Comments: Patient is a 37-year-old man who appears very intoxicated and complains of having some intermittent suicidal ideation going back up to 2 years. He states that it is much worse recently. History limited as she is very intoxicated. Patient denies recent trauma. Denies pain or dyspnea. MD Complaint: suicidal ideation, feels depressed -: year(s) Associated Psychiatric Symptoms: depression, visual hallucinations History of same: Yes Quality: getting worse Improves With: none Worsens With: none Associated Symptoms: denies other symptoms - Related Data Home Medications Medication Instructions Recorded Confirmed Naltrexone HCl [Revia] 50 mg PO DAILY 04/17/23 04/17/23 hydrOXYzine pamoate [hydrOXYzine 25 mg PO DAILY PRN 04/17/23 04/17/23 PAMOATE] Allergies Allergy/AdvReac Type Severity Reaction Status Date / Time No Known Allergies Allergy Verified 04/17/23 16:33 Review of Systems ROS Statement: Those systems with pertinent positive or pertinent negative responses have been documented in the HPI. ROS Other: All systems not noted in ROS Statement are negative. Limitations: ROS unobtainable due to patients medical condition (Patient intoxicated) Constitutional: Denies: fever Respiratory: Denies: cough, dyspnea Cardiovascular: Denies: chest pain Gastrointestinal: Denies: abdominal pain Neurological: Denies: headache Psychiatric: Reports: depression, suicidal thoughts Past Medical History Past Medical History: No Reported History History of Any Multi-Drug Resistant Organisms: None Reported Past Surgical History: No Surgical Hx Reported Past Psychological History: ADD/ADHD Smoking Status: Vaper Past Alcohol Use History: Daily, Heavy Past Drug Use History: Marijuana General Exam Limitations: no limitations General appearance: alert, appears intoxicated Head exam: Present: atraumatic, normocephalic Eye exam: Present: normal appearance, nystagmus. Absent: scleral icterus, conjunctival injection Neck exam: Present: normal inspection, full ROM. Absent: tenderness Respiratory exam: Present: normal lung sounds bilaterally. Absent: respiratory distress, wheezes, rales, rhonchi, stridor, chest wall tenderness, accessory muscle use Cardiovascular Exam: Present: regular rate, normal rhythm, normal heart sounds. Absent: systolic murmur, diastolic murmur, rubs, gallop GI/Abdominal exam: Present: soft. Absent: distended, tenderness, guarding Extremities exam: Present: normal inspection, normal capillary refill. Absent: pedal edema Neurological exam: Present: alert, CN II-XII intact. Absent: motor sensory deficit Psychiatric exam: Present: depressed, agitated. Absent: flat affect, manic, homicidal ideation Skin exam: Present: warm, dry, intact, normal color. Absent: rash Course Vital Signs 04/17/23 04/17/23 16:29 16:34 Temperature 98.1 F Pulse Rate 110 H Respiratory 16 Rate Blood Pressure 145/110 O2 Sat by Pulse 97 Oximetry Medical Decision Making - Medical Decision Making Patient is 37-year-old man, very intoxicated with symptoms of impending DTs. Patient also expressing suicidal ideation. With the level of intoxication and symptoms will admit to medicine with psychiatric consultation. - Lab Data Result diagrams: 04/17/23 17:50 Lab Results 04/17/23 Range/Units 17:50 WBC 12.2 H (3.8-10.6) k/uL RBC 5.86 (4.30-5.90) m/uL Hgb 18.4 H (13.0-17.5) gm/dL Hct 53.9 H (39.0-53.0) % MCV 91.9 (80.0-100.0) fL MCH 31.4 (25.0-35.0) pg MCHC 34.2 (31.0-37.0) g/dL RDW 13.1 (11.5-15.5) % Plt Count 247 (150-450) k/uL MPV 7.8 Neutrophils % 67 % Lymphocytes % 26 % Monocytes % 4 % Eosinophils % 0 % Basophils % 0 % Neutrophils # 8.2 H (1.3-7.7) k/uL Lymphocytes # 3.2 (1.0-4.8) k/uL Monocytes # 0.5 (0-1.0) k/uL Eosinophils # 0.0 (0-0.7) k/uL Basophils # 0.0 (0-0.2) k/uL Disposition Clinical Impression: Suicidal ideation, Alcohol intoxication Disposition: ADMITTED IP TO THIS HOSP Condition: Fair Is patient prescribed a controlled substance at d/c from ED?: No Referrals: [facility] [Primary Care Provider] - 1-2 days
[2023-04-17 18:17] LABS: Basophils % (A) 0 %; Eosinophils % (A) 0 %; HCT 53.9 % (39.0-53.0); HGB 18.4 gm/dL (13.0-17.5); Lymphocytes # (A) 3.2 k/uL (1.0-4.8); Lymphocytes % (A) 26 %; MCH 31.4 pg (25.0-35.0); MCHC 34.2 g/dL (31.0-37.0); MCV 91.9 fL (80.0-100.0); Mean Platelet Volume 7.8; Monocytes # (A) 0.5 k/uL (0-1.0); Monocytes % (A) 4 %; Neutrophils # (A) 8.2 k/uL (1.3-7.7); Neutrophils % (A) 67 %; Platelet Count 247 k/uL (150-450); RBC 5.86 m/uL (4.30-5.90); RDW 13.1 % (11.5-15.5); WBC 12.2 k/uL (3.8-10.6)
[2023-04-17] MEDS ORDERED: ACETAMINOPHEN TAB 325 MG TAB PO PRN (21:01)
[2023-04-17] MEDS ORDERED: NALOXONE 0.4 MG/ML 1 ML VIAL IV PRN (21:01)
[2023-04-17] MEDS ORDERED: ONDANSETRON 4 MG/2 ML VIAL IVP PRN (21:01)
[2023-04-17] MEDS ORDERED: MAG HYDROX/AL HYDROX/SIMETH 30 ML CUP PO PRN (21:01)
[2023-04-17 21:10] LABS: ALT 40 U/L (4-49); AST 84 U/L (17-59); African American GFR (CKD) >90 (>60 ml/min/1.73 sqM); Albumin 4.3 g/dL (3.5-5.0); Alkaline Phosphatase 63 U/L (38-126); Anion Gap 19 mmol/L; Blood Urea Nitrogen 17 mg/dL (9-20); Calcium 8.4 mg/dL (8.4-10.2); Carbon Dioxide 23 mmol/L (22-30); Chloride 105 mmol/L (98-107); Glucose 119 mg/dL (74-99); Non-African American GFR(CKD) >90 (>60 ml/min/1.73 sqM); Potassium 3.8 mmol/L (3.5-5.1); Sodium 147 mmol/L (137-145); Total Bilirubin 0.6 mg/dL (0.2-1.3); Total Protein 7.4 g/dL (6.3-8.2)
[2023-04-17 21:28] LABS: Alcohol 340 mg/dL
[2023-04-17] MEDS: NICOTINE 21MG/24HR PATCH TRANSDERM SCH (23:06)
[2023-04-18] MEDS ORDERED: hydrOXYzine pamoate 25 MG CAP PO PRN (06:11)
[2023-04-18] MEDS ORDERED: SODIUM CHLORIDE 0.9% 1,000 ML IV SCH (06:15)
[2023-04-18 06:42] VITALS: RESP 18
[2023-04-18] MEDS ORDERED: FAMOTIDINE 20 MG TAB PO SCH (09:00)
[2023-04-18] MEDS ORDERED: THIAMINE 100 MG TAB PO SCH (09:00)
[2023-04-18] MEDS: NICOTINE 21MG/24HR PATCH TRANSDERM SCH (09:29)
[2023-04-18 11:01] LABS: BUN/Creat Ratio 14.25 Ratio (12.00-20.00); Blood Urea Nitrogen 11.4 mg/dL (9.0-27.0); Chloride 103 mmol/L (96-109); Glucose 98 mg/dL (70-110); MCH 31.5 pg (27.0-32.0); MCHC 34.9 g/dL (32.0-37.0); MCV 90.3 FL (80.0-97.0); NRBC Per 100 WBC 0 X 10*3/uL (0.00-0.01); Platelet Count 178 X 10*3/uL (140-440); Potassium 4.3 mmol/L (3.5-5.5); RBC 4.76 X 10*6/uL (4.40-5.60); RDW 12.9 % (11.5-14.5); Sodium 141 mmol/L (135-145); WBC 7.79 X 10*3/uL (4.50-10.00)
[2023-04-18 11:02] LABS: ALT 37 U/L (10-49); AST 66 U/L (14-35); Albumin/Globulin Ratio 1.54 Ratio (1.60-3.17); Alkaline Phosphatase 62 U/L (41-126); Calcium 8.8 mg/dL (8.7-10.3); Carbon Dioxide 27.5 mmol/L (21.6-31.8); Globulin 2.6 g/dL (1.6-3.3); Total Bilirubin 0.8 mg/dL (0.3-1.2); Total Protein 6.6 g/dL (6.2-8.2)
--- NOTE | 2023-04-18 11:51 | P.HPIM ---
History of Present Illness H&P Date: 04/18/23 Chief Complaint: Alcohol withdrawal * 37 year old gentleman with past medical history significant for polysubstance use, previous history of pancreatitis, presents to the emergency department with complains of suicidal ideation as well as patient resented intoxicated. Patient has been depressed and has been having visual hallucinations. Workup initiated in ER included a comprehensive metabolic panel and blood alcohol levels which were elevated. * Serum chemistry obtained showed AST of 85-year-old every 4 T bilirubin within normal limits, serum sodium 147 * CBC obtained showed sodium 12 hemoglobin 18 hematocrit 53 platelet 247 * Serum alcohol 314 * Patient to be placed in observation and monitored for alcohol withdrawal. Follow-up on CBC and CMP levels ordered follow-up for hypernatremia * Will consult psychiatry , and the meanwhile maintain safety precaution * Upon further questioning patient patient said he was intoxicated and he did not mean to hurt himself Be suicidal or homicidal, patient does mention that he really wants to quit drinking and has a plan. He would like to continue with his current job although does say at times it can get stressful REVIEW OF SYSTEMS: Depression, suicidal ideation upon admission, intoxicated CONSTITUTIONAL: No fever, no malaise, no fatigue. HEENT: No recent visual problems or hearing problems. Denied any sore throat. CARDIOVASCULAR: No chest pain, orthopnea, PND, no palpitations, no syncope. PULMONARY: No shortness of breath, no cough, no hemoptysis. GASTROINTESTINAL: No diarrhea, no nausea, no vomiting, no abdominal pain. NEUROLOGICAL: No headaches, no weakness, no numbness. HEMATOLOGICAL: Denies any bleeding or petechiae. GENITOURINARY: Denies any burning micturition, frequency, or urgency. MUSCULOSKELETAL/RHEUMATOLOGICAL: Denies any joint pain, swelling, or any muscle pain. ENDOCRINE: Denies any polyuria or polydipsia. Assessment and plan * Acute alcohol intoxication with impending withdrawal * Depression with suicidal ideation on admission * Transaminitis secondary to alcohol-induced liver injury * Acute hypernatremia * In regards to alcohol withdrawal, continue on withdrawal protocol, use Ativan as needed, hydroxyzine as needed, psychiatry consulted continue thiamine, continue fluid resuscitation * In regards to hypernatremia, continue fluid resuscitation follow-up on serum sodium levels * In regards to suicidal ideation/depression psychiatry consulted continue to maintain maximal safety precautions * In regards to transaminitis, follow-up on liver profile * CODE STATUS is full code Past Medical History Past Medical History: No Reported History Additional Past Medical History / Comment(s): panceratitis History of Any Multi-Drug Resistant Organisms: None Reported Past Surgical History: No Surgical Hx Reported Past Anesthesia/Blood Transfusion Reactions: No Reported Reaction Past Psychological History: ADD/ADHD Smoking Status: Vaper Past Alcohol Use History: Daily, Heavy Past Drug Use History: Marijuana Medications and Allergies Home Medications Medication Instructions Recorded Confirmed Type Ibuprofen [Motrin Ib] 400 mg PO Q8H PRN 10/20/20 10/20/20 History Ciprofloxacin HCl [Cipro] 500 mg PO Q12HR #10 tablet 10/22/20 Rx HYDROcodone/APAP 5-325MG [[place] 1 each PO Q6HR PRN #10 tab 10/22/20 Rx 5-325] Multivitamins, Thera [Multivitamin 1 each PO DAILY@1200 #30 tab 10/22/20 Rx (formulary)] Nicotine 14Mg/24Hr Patch [Habitrol] 1 patch TRANSDERM DAILY #20 patch 10/22/20 Rx Pantoprazole Sodium [Protonix] 40 mg PO DAILY #30 tablet. 10/22/20 Rx metroNIDAZOLE [Flagyl] 500 mg PO TID #15 tab 10/22/20 Rx Ibuprofen [Motrin] 600 mg PO Q8HR PRN #20 tab 02/06/21 Rx Naltrexone HCl [Revia] 50 mg PO DAILY 04/17/23 04/17/23 History hydrOXYzine pamoate [hydrOXYzine 25 mg PO DAILY PRN 04/17/23 04/17/23 History PAMOATE] Allergies Allergy/AdvReac Type Severity Reaction Status Date / Time ondansetron Allergy Rash/Hives Verified 04/18/23 08:17 [From Zofran (as hydrochloride)] Physical Exam Vitals: Vital Signs Temp Pulse Resp BP Pulse Ox 04/18/23 06:19 98.4 F 92 18 133/73 98 04/17/23 16:34 110 H 16 97 04/17/23 16:29 98.1 F 145/110 Intake and Output 04/17/23 04/18/23 04/18/23 22:59 06:59 14:59 Other: Weight 81.647 kg PHYSICAL EXAMINATION: GENERAL: The patient is alert and oriented x3, Well developed, well nourished. HEENT: Pupils are round and equally reacting to light. EOMI. CARDIOVASCULAR: S1 and S2 present. No murmurs, rubs, or gallops. PULMONARY: Chest is clear to auscultation, no wheezing or crackles. ABDOMEN: Soft, nontender, nondistended, normoactive bowel sounds. No palpable organomegaly. MUSCULOSKELETAL: No joint swelling or deformity. EXTREMITIES: No cyanosis, clubbing, or pedal edema. NEUROLOGICAL: Gross neurological examination did not reveal any focal deficits. Results CBC & Chem 7: 04/18/23 07:18 04/18/23 07:18 Labs: Abnormal Lab Results - Last 24 Hours (Table) 04/17/23 04/17/23 Range/Units 17:50 20:10 WBC 12.2 H (3.8-10.6) k/uL Hgb 18.4 H (13.0-17.5) gm/dL Hct 53.9 H (39.0-53.0) % Neutrophils # 8.2 H (1.3-7.7) k/uL Sodium 147 H (137-145) mmol/L Glucose 119 H (74-99) mg/dL AST 84 H (17-59) U/L Serum Alcohol 340 H* mg/dL Assessment and Plan Time with Patient: Greater than 30
[2023-04-18] MEDS ORDERED: ESCITALOPRAM 10 MG TAB PO SCH (13:30)
[2023-04-18] MEDS ORDERED: NALTREXONE HCL 50 MG TAB PO SCH (13:30)
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
[2023-04-18 14:32] VITALS: BP 146/88; PULSE 80; TEMP 99.1
--- NOTE | 2023-04-18 14:58 | P.DS ---
Providers Date of admission: 04/18/23 12:48 Expected date of discharge: 04/18/23 Attending physician: Nir Cheung Consults: 04/17/23 21:01 Consult Physician Routine Consulting Provider: Gary Altman Consult Reason/Comments: Suicidal ideation Do you want consulting provider notified?: Yes Primary care physician: [facility] Hospital Course: * 37 year old gentleman with past medical history significant for polysubstance use, previous history of pancreatitis, presents to the emergency department with complains of suicidal ideation as well as patient resented intoxicated. Patient has been depressed and has been having visual hallucinations. Workup initiated in ER included a comprehensive metabolic panel and blood alcohol levels which were elevated. * Serum chemistry obtained showed AST of 85-year-old every 4 T bilirubin within normal limits, serum sodium 147 * CBC obtained showed sodium 12 hemoglobin 18 hematocrit 53 platelet 247 * Serum alcohol 314 * Patient to be placed in observation and monitored for alcohol withdrawal. Follow-up on CBC and CMP levels ordered follow-up for hypernatremia * Will consult psychiatry , and the meanwhile maintain safety precaution * Upon further questioning patient patient said he was intoxicated and he did not mean to hurt himself Be suicidal or homicidal, patient does mention that he really wants to quit drinking and has a plan. He would like to continue with his current job although does say at times it can get stressful * 04/18/2023: Patient was seen and evaluated at bedside, patient denies suicidal ideation patient is alert and oriented 4, patient was seen by psychiatry and cleared for discharge and started on medication regimen prescription provided. Patient discharged home. No safety concerns at this point * REVIEW OF SYSTEMS: Denies suicidal ideation, denies homicidal ideation planning to get his life together and work PHYSICAL EXAMINATION: GENERAL: The patient is alert and oriented x3, not in any acute distress. Well developed, well nourished. HEENT: Pupils are round and equally reacting to light. EOMI. No scleral icterus. No conjunctival pallor. Normocephalic, atraumatic. No pharyngeal erythema. No thyromegaly. CARDIOVASCULAR: S1 and S2 present. No murmurs, rubs, or gallops. PULMONARY: Chest is clear to auscultation, no wheezing or crackles. ABDOMEN: Soft, nontender, nondistended, normoactive bowel sounds. No palpable organomegaly. MUSCULOSKELETAL: No joint swelling or deformity. EXTREMITIES: No cyanosis, clubbing, or pedal edema. NEUROLOGICAL: Gross neurological examination did not reveal any focal deficits. SKIN: No rashes. Assessment and plan * Acute alcohol intoxication with impending withdrawal salt * Depression with suicidal ideation on admission resolved, related by psychiatry * Transaminitis secondary to alcohol-induced liver injury * Acute hypernatremia treated with IV fluids resolved * In regards to alcohol withdrawal, it's provided, discharged home * In regards to hypernatremia, continue fluid resuscitation follow-up on serum sodium levels follow-up sodium levels improved * In regards to suicidal ideation/depression psychiatry consulted , safety concerns cleared for discharge * In regards to transaminitis, liver profile trending down * Stable for discharge home Patient Condition at Discharge: Fair Plan - Discharge Summary New Discharge Prescriptions: New Escitalopram [Lexapro] 10 mg PO DAILY 14 Days #14 tab Continue Ibuprofen [Motrin Ib] 400 mg PO Q8H PRN PRN Reason: Pain Or Fever > 100.5 Nicotine 14Mg/24Hr Patch [Habitrol] 1 patch TRANSDERM DAILY #20 patch HYDROcodone/APAP 5-325MG [[place] 5-325] 1 each PO Q6HR PRN #10 tab PRN Reason: Pain Pantoprazole Sodium [Protonix] 40 mg PO DAILY #30 tablet. Multivitamins, Thera [Multivitamin (formulary)] 1 each PO DAILY@1200 #30 tab hydrOXYzine pamoate [hydrOXYzine PAMOATE] 25 mg PO DAILY PRN 14 Days #14 cap PRN Reason: Anxiety Naltrexone HCl [Revia] 50 mg PO DAILY 14 Days #14 tab Discontinued metroNIDAZOLE [Flagyl] 500 mg PO TID #15 tab Ibuprofen [Motrin] 600 mg PO Q8HR PRN #20 tab PRN Reason: Pain Ciprofloxacin HCl [Cipro] 500 mg PO Q12HR #10 tablet Discharge Medication List Ibuprofen [Motrin Ib] 400 mg PO Q8H PRN 10/20/20 [History] HYDROcodone/APAP 5-325MG [[place] 5-325] 1 each PO Q6HR PRN #10 tab 10/22/20 [Rx] Multivitamins, Thera [Multivitamin (formulary)] 1 each PO DAILY@1200 #30 tab 10/22/20 [Rx] Nicotine 14Mg/24Hr Patch [Habitrol] 1 patch TRANSDERM DAILY #20 patch 10/22/20 [Rx] Pantoprazole Sodium [Protonix] 40 mg PO DAILY #30 tablet.dr 10/22/20 [Rx] Escitalopram [Lexapro] 10 mg PO DAILY 14 Days #14 tab 04/18/23 [Rx] Naltrexone HCl [Revia] 50 mg PO DAILY 14 Days #14 tab 04/18/23 [Rx] hydrOXYzine pamoate [hydrOXYzine PAMOATE] 25 mg PO DAILY PRN 14 Days #14 cap 04/18/23 [Rx] Follow up Appointment(s)/Referral(s): [facility] [Primary Care Provider] - 1-2 days Discharge Disposition: HOME SELF-CARE
[2023-04-19] MEDS ORDERED: ENOXAPARIN 40 MG/0.4 ML SYRINGE SQ SCH (09:00)
== END 2023-04-18 15:05 | disposition home or self-care (01) ==
LOC: EC 16:23 → 6NMEDSUR 21:02 → MERGE 21:02 → 4SSUR 23:14 → INTOOBSV 04-18 12:48 → OBSVTOIN 04-18 12:48 → 4SSUR 04-18 15:49
PROVIDERS: ADMIT Hospitalist; ATTEND Hospitalist
DX: F10.129 Alcohol abuse with intoxication, unspecified (principal); R45.851 Suicidal ideations; F32.A Depression, unspecified; F10.139 Alcohol abuse with withdrawal, unspecified; E87.0 Hyperosmolality and hypernatremia; K70.9 Alcoholic liver disease, unspecified; T50.7X6A Underdosing of analeptics and opioid receptor antagonists, initial encounter; T43.596A Underdosing of other antipsychotics and neuroleptics, initial encounter; Z91.128 Patient's intentional underdosing of medication regimen for other reason; R44.1 Visual hallucinations; F41.9 Anxiety disorder, unspecified; F90.9 Attention-deficit hyperactivity disorder, unspecified type; Y90.8 Blood alcohol level of 240 mg/100 ml or more; F12.90 Cannabis use, unspecified, uncomplicated; F17.290 Nicotine dependence, other tobacco product, uncomplicated; Z79.899 Other long term (current) drug therapy; Z88.8 Allergy status to other drugs, medicaments and biological substances; Z87.19 Personal history of other diseases of the digestive system; Z98.890 Other specified postprocedural states; Z87.898 Personal history of other specified conditions
CPT/HCPCS: 96376 ×2; 82075; 96361 ×2; 96372; 96374; 99284; 36415; 80053 ×2; 85025; 85027; G0378 ×3; G0480; S4990 ×2; J2060 ×2; J3411; 80320

== ENCOUNTER 2023-08-22 12:37 | Emergency (ER) | payer OTHER ==
[2023-08-22] MEDS: TOPICAL SKIN ADHESIVE 1 EACH AMP TOPICAL ONE ×2 (13:11→13:12)
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
[2023-08-22 14:13] VITALS: BP 140/84; PULSE 90; RESP 18; TEMP 98.8
== END 2023-08-22 13:52 | disposition home or self-care (01) ==
LOC: EC 12:37
DX: S01.81XA Laceration without foreign body of other part of head, initial encounter (principal); F17.290 Nicotine dependence, other tobacco product, uncomplicated; Z88.8 Allergy status to other drugs, medicaments and biological substances; W25.XXXA Contact with sharp glass, initial encounter
CPT/HCPCS: 12014; 99283

== ENCOUNTER 2024-01-03 12:26 | Emergency (ER) | payer BC ==
[2024-01-03] MEDS ORDERED: MORPHINE SULFATE 4 MG/ML SYRINGE ONE (13:05)
[2024-01-03] MEDS ORDERED: cefTRIAXone 1,000 MG VIAL (IM USE) IM ONE (13:05)
[2024-01-03] MEDS ORDERED: LIDOCAINE 1% INJ 10MG/ML (20 ML MDV) ONE (13:06)
[2024-01-03] MEDS ORDERED: LORazepam 2 MG/ML INJ ONE (13:06)
[2024-01-03] MEDS ORDERED: HYDROmorphone 1 MG/ML 1 ML SYRINGE ONE (13:26)
[2024-01-03] MEDS ORDERED: ACET/COD 300 MG/30 MG STARTER PACK 6 TAB BTL PO ONE (15:20)
--- NOTE | 2024-02-02 15:20 | XR ---
EXAMINATION TYPE: XR foot limited RT DATE OF EXAM: 01/03/2024. Images presented 02/02/2024 for final interpretation. Previous dictation coul d not be located COMPARISON: 01/03/2024 HISTORY: Laceration between fourth and fifth digits TECHNIQUE: Right foot is examined in 3 views. FINDINGS: There is a small calcification extending from the lateral distal fourth metatarsal. Osseous cortex injury could be considered. No additional areas suspicious for osseous abnormality evident. S oft tissue injury between the fourth and fifth digits. No radiopaque foreign body evident. Follow up exams can be performed as clinically indicated. IMPRESSION: 1. Tiny osseous injury along the lateral distal fourth metatarsal. 2. Soft tissue injury between the fourth and fifth distal metatarsals right foot. [facility], , 02/02/2024 3:18 PM
== END 2024-01-03 15:26 | disposition home or self-care (01) ==
LOC: EC 12:26

== ENCOUNTER 2024-01-04 10:58 | Emergency (ER) | payer BC ==
[2024-01-04] MEDS ORDERED: HYDROmorphone 1 MG/ML 1 ML SYRINGE ONE (11:32)
[2024-01-04] MEDS ORDERED: ACET/COD 300 MG/30 MG STARTER PACK 6 TAB BTL PO ONE (11:32)
[2024-01-04] MEDS ORDERED: GELATIN SPONGE,ABSORB (SMALL) 1 EACH SPONGE ONE (11:47)
== END 2024-01-04 12:43 | disposition home or self-care (01) ==
LOC: EC 10:58 → EDSTATUS 16:28
DX: Z48.89 Encounter for other specified surgical aftercare
CPT/HCPCS: 99282

== ENCOUNTER 2024-01-10 15:22 | Emergency (ER) | payer BC ==
[2024-01-10] MEDS ORDERED: CEPHALEXIN 500 MG CAP ONE (16:15)
[2024-01-10] MEDS ORDERED: SULFAMETH-TMP DS STARTER PACK 2 TAB BTL ONE (16:15)
[2024-01-10] MEDS ORDERED: ACET/COD 300 MG/30 MG STARTER PACK 6 TAB BTL PO ONE (16:21)
== END 2024-01-10 16:40 | disposition home or self-care (01) ==
LOC: EC 15:22
CPT/HCPCS: 99282

== ENCOUNTER 2024-01-12 13:46 | Emergency (ER) | payer OTHER ==
[2024-01-12 13:51] VITALS: RESP 16
[2024-01-12] MEDS: KETOROLAC 15 MG/ML 1 ML VIAL IM STA (14:33)
[2024-01-12] MEDS: HYDROmorphone 1 MG/ML 1 ML SYRINGE IM STA (14:35)
--- NOTE | 2024-01-12 14:39 | ED ---
Wound/Laceration HPI - General Chief Complaint: Wound/Laceration Stated Complaint: foot pain Time Seen by Provider: 01/12/24 13:51 Source: patient, RN notes reviewed Mode of arrival: ambulatory Limitations: no limitations - History of Present Illness Initial Comments: This is a 38 year old male who presents to the emergency department for a right foot wound. Patient was here a little over a week ago for laceration to the right foot. Sutures were placed and he is due to have these removed in the next couple of days. States that his work note is about to and he needs another one. Also requesting a refill on pain medication. He is taking the antibiotics as prescribed. - Related Data Home Medications Medication Instructions Recorded Confirmed Ibuprofen [Motrin Ib] 400 mg PO Q8H PRN 10/20/20 10/20/20 Previous Rx's Medication Instructions Recorded HYDROcodone/APAP 5-325MG [[place] 1 each PO Q6HR PRN #10 tab 10/22/20 5-325] Multivitamins, Thera [Multivitamin 1 each PO DAILY@1200 #30 tab 10/22/20 (formulary)] Nicotine 14Mg/24Hr Patch [Habitrol] 1 patch TRANSDERM DAILY #20 patch 10/22/20 Pantoprazole Sodium [Protonix] 40 mg PO DAILY #30 tablet. 10/22/20 Escitalopram [Lexapro] 10 mg PO DAILY 14 Days #14 tab 04/18/23 Naltrexone HCl [Revia] 50 mg PO DAILY 14 Days #14 tab 04/18/23 hydrOXYzine pamoate 25 mg PO DAILY PRN 14 Days #14 cap 04/18/23 Allergies Allergy/AdvReac Type Severity Reaction Status Date / Time ondansetron Allergy Rash/Hives Verified 08/22/23 12:44 [From Zofran (as hydrochloride)] Review of Systems ROS Statement: Those systems with pertinent positive or pertinent negative responses have been documented in the HPI. ROS Other: All systems not noted in ROS Statement are negative. Past Medical History Past Medical History: No Reported History Additional Past Medical History / Comment(s): panceratitis History of Any Multi-Drug Resistant Organisms: None Reported Past Surgical History: No Surgical Hx Reported Past Anesthesia/Blood Transfusion Reactions: No Reported Reaction Past Psychological History: ADD/ADHD, Anxiety Smoking Status: Current every day smoker, Vaper Past Alcohol Use History: Daily, Heavy, Occasional General Exam Limitations: no limitations General appearance: alert, in no apparent distress Head exam: Present: atraumatic, normocephalic, normal inspection Respiratory exam: Present: normal lung sounds bilaterally. Absent: respiratory distress, wheezes, rales, rhonchi, stridor Cardiovascular Exam: Present: regular rate, normal rhythm, normal heart sounds. Absent: systolic murmur, diastolic murmur, rubs, gallop, clicks Extremities exam: Present: other (Sutures to the right foot intact. Mild erythema consistent with healing. No signs of infection.) Neurological exam: Present: alert, oriented X3, CN II-XII intact Psychiatric exam: Present: normal affect, normal mood Course Vital Signs 01/12/24 01/12/24 13:49 15:23 Temperature 97.8 F 98.5 F Pulse Rate 70 62 Respiratory 16 16 Rate Blood Pressure 129/80 119/74 O2 Sat by Pulse 99 98 Oximetry Medical Decision Making - Medical Decision Making This is a 38-year-old male who presents to the emergency department for a right foot wound and requesting a work note. Was pt. sent in by a medical professional or institution? @ -No Did you speak to anyone other than the patient for history? @ -No Did you review nursing and triage notes? @ -Yes, and I agree, it is accurate with regards to the patient's symptoms. Were old charts reviewed? @ -No Differential Diagnosis? @ -Differential Foot Wound: Laceration, abrasion, cellulitis, burn, this is not meant to be an all-inclusive list. EKG interpreted by me (3pts min.)? @ -Not obtained X-rays interpreted by me (1pt min.)? @ -Not obtained CT interpreted by me (1pt min.)? @ -Not obtained U/S interpreted by me (1pt. min.)? @ -Not obtained What testing was considered but not performed? (CT, X-rays, U/S, labs)? Why? @ -None What meds were considered but not given? Why? @ -None Did you discuss the management of the patient with other professionals? @ -No Did you reconcile home meds? @ -No Was smoking cessation discussed for >3mins.? @ -I discussed smoking cessation for greater than 3 minutes. The risk of smoking were discussed with the patient including but not limited to risks of cancer, stroke, coronary artery disease and COPD. Also discussed with patient were multiple methods of quitting smoking. Lastly we discussed the financial cost of smoking. Was critical care preformed (if so, how long)? @ -No Were there social determinants of health that impacted care today? How? (Homelessness, low income, unemployed, alcoholism, drug addiction, transportation, low edu. Level, literacy, decrease access to med. care, [place] [facility], rehab)? @ -No Was there de-escalation of care discussed even if they declined? (Discuss DNR or withdrawal of care, Hospice)? @ -No What co-morbidities impacted this encounter? (DM, HTN, Smoking, COPD, CAD, Cancer, CVA, Hep., AIDS, mental health diagnosis, sleep apnea, morbid obesity)? @ -Smoking Was patient admitted / discharged? @ -Discharged. On examination the wound appeared to be fairly well-healing. There is mild erythema consistent with the healing process but no obvious signs of infection. Advised to continue to take his antibiotics as prescribed. Work note was provided. I advised that the sutures could be removed today, as it had been 9 days since they were placed. However, patient states that he wanted to wait another couple of days as it was still mildly painful. Advised he not go longer than another couple of days due to risk of infection if they remain in place for too long. Patient discharged home in stable condition. Case discussed with ED attending Dr. Marcos. Return precautions reviewed in depth, the patient is instructed to return to the emergency department with any new, worsening, or concerning symptoms. Patient verbalized understanding. Undiagnosed new problem with uncertain prognosis? @ -None Drug Therapy requiring intensive monitoring for toxicity (Heparin, Nitro, Insulin, Cardizem)? @ -None Were any procedures done? @ -None Diagnosis/symptom? @ -Laceration Acute, or Chronic, or Acute on Chronic? @ -Acute Uncomplicated (without systemic symptoms) or Complicated (systemic symptoms)? @ -Uncomplicated Side effects of treatment? @ -None Exacerbation, Progression, or Severe Exacerbation] @ -Not applicable Poses a threat to life or bodily function? @ -No Disposition Clinical Impression: Laceration of right foot, Nicotine dependence Disposition: HOME SELF-CARE Instructions (If sedation given, give patient instructions): Care For Your Stitches (ED), Laceration (ED) Additional Instructions: Return to the emergency department with any new, worsening, or concerning symptoms and in 1-2 days for removal of stitches. Continue your antibiotics. Is patient prescribed a controlled substance at d/c from ED?: No [facility]errals: [facility] [Primary Care Provider] - 1-2 days Time of Disposition: 15:09
[2024-01-12 15:25] VITALS: BP 119/74; PULSE 62; TEMP 98.5
== END 2024-01-12 15:25 | disposition home or self-care (01) ==
LOC: EC 13:46
DX: S91.311A Laceration without foreign body, right foot, initial encounter (principal); F17.290 Nicotine dependence, other tobacco product, uncomplicated; Z88.8 Allergy status to other drugs, medicaments and biological substances; W17.89XA Other fall from one level to another, initial encounter
CPT/HCPCS: 99283; 99406; J1170; J1885

== ENCOUNTER 2024-01-21 09:59 | Emergency (ER) | payer BC, OTHER ==
[2024-01-21 10:03] VITALS: RESP 18
--- NOTE | 2024-01-21 10:21 | ED ---
General Adult HPI - General Chief complaint: Extremity Injury, Lower Stated complaint: R Foot Injury Time Seen by Provider: 01/21/24 10:03 Source: patient, RN notes reviewed, old records reviewed Mode of arrival: ambulatory Limitations: no limitations - History of Present Illness Initial comments: 38-year-old male presenting for evaluation of laceration to the right foot. Patient received stitches approximately 2 weeks ago for laceration. He states he was told to return for suture removal. Patient denies erythema. He reports mild pain. No fever. - Related Data Home Medications Medication Instructions Recorded Confirmed Ibuprofen [Motrin Ib] 400 mg PO Q8H PRN 10/20/20 10/20/20 Previous Rx's Medication Instructions Recorded HYDROcodone/APAP 5-325MG [[place] 1 each PO Q6HR PRN #10 tab 10/22/20 5-325] Multivitamins, Thera [Multivitamin 1 each PO DAILY@1200 #30 tab 10/22/20 (formulary)] Nicotine 14Mg/24Hr Patch [Habitrol] 1 patch TRANSDERM DAILY #20 patch 10/22/20 Pantoprazole Sodium [Protonix] 40 mg PO DAILY #30 tablet. 10/22/20 Escitalopram [Lexapro] 10 mg PO DAILY 14 Days #14 tab 04/18/23 Naltrexone HCl [Revia] 50 mg PO DAILY 14 Days #14 tab 04/18/23 hydrOXYzine pamoate 25 mg PO DAILY PRN 14 Days #14 cap 04/18/23 Ibuprofen [Motrin] 600 mg PO Q8HR PRN #24 tab 01/21/24 Allergies Allergy/AdvReac Type Severity Reaction Status Date / Time ondansetron Allergy Rash/Hives Verified 01/21/24 10:02 [From Zofran (as hydrochloride)] Review of Systems ROS Statement: Those systems with pertinent positive or pertinent negative responses have been documented in the HPI. ROS Other: All systems not noted in ROS Statement are negative. Past Medical History Past Medical History: No Reported History Additional Past Medical History / Comment(s): panceratitis History of Any Multi-Drug Resistant Organisms: None Reported Past Surgical History: No Surgical Hx Reported Past Anesthesia/Blood Transfusion Reactions: No Reported Reaction Past Psychological History: ADD/ADHD, Anxiety Smoking Status: Current every day smoker, Vaper Past Alcohol Use History: Daily, Heavy, Occasional General Exam Limitations: no limitations General appearance: alert, in no apparent distress Head exam: Present: atraumatic, normocephalic Eye exam: Present: normal appearance, PERRL ENT exam: Present: normal exam Neck exam: Present: normal inspection Respiratory exam: Present: normal lung sounds bilaterally. Absent: respiratory distress, wheezes Cardiovascular Exam: Present: regular rate, normal rhythm GI/Abdominal exam: Present: soft. Absent: distended, tenderness Extremities exam: Present: other (Laceration to the right foot between the fourth and fifth digits, well-healed, no signs of infection) Course Vital Signs 01/21/24 10:00 Temperature 97.8 F Pulse Rate 60 Respiratory 18 Rate Blood Pressure 116/78 O2 Sat by Pulse 100 Oximetry Medical Decision Making - Medical Decision Making Was pt. sent in by a medical professional or institution (JEROMY Ledesma, LEAD MAINTENANCE TECHNICIAN, urgent care, hospital, or fdc...) When possible be specific @ -No Did you speak to anyone other than the patient for history (EMS, parent, family, police, friend...)? What history was obtained from this source @ -No Did you review nursing and triage notes (agree or disagree)? Why? @ -I reviewed and agree with nursing and triage notes Were old charts reviewed (outside hosp., previous admission, EMS record, old EKG, old radiological studies, urgent care reports/EKG's, fdc records)? Report findings @ -No old charts were reviewed Differential Diagnosis laceration evaluation, suture removal EKG interpreted by me (3pts min.). @ -As above X-rays interpreted by me (1pt min.). @ -None done CT interpreted by me (1pt min.). @ -None done U/S interpreted by me (1pt. min.). @ -None done What testing was considered but not performed or refused? (CT, X-rays, U/S, labs)? Why? @ -None What meds were considered but not given or refused? Why? @ -None Did you discuss the management of the patient with other professionals (professionals i.e. JEROMY Ledesma, LEAD MAINTENANCE TECHNICIAN, lab, RT, psych nurse, social science instructor, shuttle van driver, teacher, major gifts officer, lining caser)? Give summary @ -No Was smoking cessation discussed for >3mins.? @ -No Was critical care preformed (if so, how long)? @ -No Were there social determinants of health that impacted care today? How? (Homelessness, low income, unemployed, alcoholism, drug addiction, transportation, low edu. Level, literacy, decrease access to med. care, skilled nursing, rehab)? @ -No Was there de-escalation of care discussed even if they declined (Discuss DNR or withdrawal of care, Hospice)? DNR status @ -No What co-morbidities impacted this encounter? (DM, HTN, Smoking, COPD, CAD, Cancer, CVA, ARF, Chemo, Hep., AIDS, mental health diagnosis, sleep apnea, morbid obesity)? @ -None Was patient admitted / discharged? Hospital course, mention meds given and route, prescriptions, significant lab abnormalities, going to OR and other pertinent info. @Laceration appears well-healed, sutures removed, patient will follow-up with primary care provider Undiagnosed new problem with uncertain prognosis? @ -No Drug Therapy requiring intensive monitoring for toxicity (Heparin, Nitro, Insulin, Cardizem)? @ -No Were any procedures done? @ -No Diagnosis/symptom? @Laceration, suture removal Acute, or Chronic, or Acute on Chronic? @ -Acute Uncomplicated (without systemic symptoms) or Complicated (systemic symptoms)? @ -Default Side effects of treatment? @ -No Exacerbation, Progression, or Severe Exacerbation? @ -No Poses a threat to life or bodily function? How? (Chest pain, [place], [place], pneumonia, PE, COPD, DKA, ARF, appy, cholecystitis, CVA, Diverticulitis, Homicidal, Suicidal, threat to staff... and all critical care pts) @ -No Disposition Clinical Impression: Laceration of right foot, Encounter for removal of sutures Disposition: HOME SELF-CARE Condition: Fair Instructions (If sedation given, give patient instructions): Laceration (ED) Prescriptions: Ibuprofen [Motrin] 600 mg PO Q8HR PRN #24 tab PRN Reason: Pain Is patient prescribed a controlled substance at d/c from ED?: No Referrals: [facility] [Primary Care Provider] - 1-2 days Time of Disposition: 10:21
[2024-01-21 11:03] VITALS: BP 110/82; PULSE 68; TEMP 98
== END 2024-01-21 11:05 | disposition home or self-care (01) ==
LOC: EC 09:59
DX: S99.921A Unspecified injury of right foot, initial encounter
CPT/HCPCS: 99283

== ENCOUNTER 2024-02-06 13:54 | Observation (INO) | payer BC ==
[2024-02-06] MEDS: SODIUM CHLORIDE 0.9% 1,000 ML IV ONE (14:53)
[2024-02-06 14:57] LABS: Basophils % (A) 0 %; Eosinophils # (A) 0.1 k/uL (0-0.7); Eosinophils % (A) 1 %; Lymphocytes # (A) 3.1 k/uL (1.0-4.8); Lymphocytes % (A) 35 %; MCH 30.5 pg (25.0-35.0); MCHC 32.6 g/dL (31.0-37.0); MCV 93.5 fL (80.0-100.0); Monocytes # (A) 0.3 k/uL (0-1.0); Monocytes % (A) 3 %; Neutrophils # (A) 5.3 k/uL (1.3-7.7); Neutrophils % (A) 59 %; Platelet Count 297 k/uL (150-450); RDW 13.2 % (11.5-15.5)
[2024-02-06] MEDS: LORazepam 2 MG/ML INJ IV STA (15:13)
[2024-02-06 15:35] LABS: Amphetamine Screen,Urine Not Detected (NotDetected); Barbiturate Screen,Urine Not Detected (NotDetected); Benzodiazepines Screen,Urine Not Detected (NotDetected); Cocaine Screen,Urine Not Detected (NotDetected); Methadone Screen, Urine Not Detected (NotDetected); Opiate Screen,Urine Not Detected (NotDetected); Oxycodone Screen, Urine Not Detected (NotDetected); Phencyclidine Screen,Urine Not Detected (NotDetected); Tricyclic Antidepressant,Urine Not Detected (NotDetected); Urn Cannabinoid Scrn Detected (NotDetected)
[2024-02-06 15:48] LABS: ALT 28 U/L (4-49); AST 41 U/L (17-59); African American GFR (CKD) >90 (>60 ml/min/1.73 sqM); Albumin 4.7 g/dL (3.5-5.0); Alkaline Phosphatase 68 U/L (38-126); Anion Gap 14 mmol/L; Blood Urea Nitrogen 6 mg/dL (9-20); Calcium 9.7 mg/dL (8.4-10.2); Carbon Dioxide 24 mmol/L (22-30); Chloride 112 mmol/L (98-107); Glucose 109 mg/dL (74-99); Magnesium 2.1 mg/dL (1.6-2.3); Non-African American GFR(CKD) >90 (>60 ml/min/1.73 sqM); Potassium 4.5 mmol/L (3.5-5.1); Sodium 150 mmol/L (137-145); Total Bilirubin 0.5 mg/dL (0.2-1.3); Total Protein 7.8 g/dL (6.3-8.2)
[2024-02-06 16:04] LABS: Alcohol 412 mg/dL
[2024-02-06] MEDS ORDERED: LORazepam 2 MG/ML INJ IV PRN ×3 (16:15)
[2024-02-06] MEDS ORDERED: NALOXONE 0.4 MG/ML 1 ML VIAL IV PRN (16:15)
--- NOTE | 2024-02-06 16:18 | ED ---
General Adult HPI - General Chief complaint: Alcohol Stated complaint: Mental Health Time Seen by Provider: 02/06/24 14:02 Source: patient, RN notes reviewed, old records reviewed Mode of arrival: ambulatory Limitations: no limitations - History of Present Illness Initial comments: 38-year-old male presenting with acute alcohol intoxication. Patient requesting detox for rehabilitation. Patient admits to heavy alcohol consumption prior to arrival. Patient is a daily drinker. No suicidal or homicidal comments. No physical complaints. - Related Data Home Medications Medication Instructions Recorded Confirmed ARIPiprazole [Abilify Asimtufii] 960 mg IM Q56D 02/06/24 02/06/24 Albuterol Inhaler [Ventolin Hfa 1 - 2 puff INHALATION RT-Q4H PRN 02/06/24 02/06/24 Inhaler] Ciclesonide [[place]ves[place]] 2 puff INHALATION RT-BID 02/06/24 02/06/24 Escitalopram [Lexapro] 20 mg PO DAILY 02/06/24 02/06/24 hydrOXYzine pamoate [Vistaril] 50 mg PO BID 02/06/24 02/06/24 tadalafiL 5 mg PO DAILY PRN 02/06/24 02/06/24 Previous Rx's Medication Instructions Recorded Naltrexone HCl [Revia] 50 mg PO DAILY 14 Days #14 tab 04/18/23 Allergies Allergy/AdvReac Type Severity Reaction Status Date / Time ondansetron Allergy Rash/Hives Verified 02/06/24 14:00 [From Zofran (as hydrochloride)] Review of Systems ROS Statement: Those systems with pertinent positive or pertinent negative responses have been documented in the HPI. ROS Other: All systems not noted in ROS Statement are negative. Past Medical History Past Medical History: No Reported History Additional Past Medical History / Comment(s): panceratitis History of Any Multi-Drug Resistant Organisms: None Reported Past Surgical History: No Surgical Hx Reported Past Anesthesia/Blood Transfusion Reactions: No Reported Reaction Past Psychological History: ADD/ADHD, Anxiety Smoking Status: Current every day smoker, Vaper Past Alcohol Use History: Daily, Heavy, Occasional Past Drug Use History: None Reported General Exam Limitations: no limitations General appearance: alert, appears intoxicated Head exam: Present: atraumatic, normocephalic Eye exam: Present: normal appearance, PERRL ENT exam: Present: normal exam Neck exam: Present: normal inspection. Absent: tenderness, meningismus Respiratory exam: Present: normal lung sounds bilaterally. Absent: respiratory distress, wheezes Cardiovascular Exam: Present: regular rate, normal rhythm GI/Abdominal exam: Present: soft. Absent: distended, tenderness, guarding Extremities exam: Present: normal inspection, normal capillary refill Neurological exam: Present: alert, CN II-XII intact. Absent: motor sensory deficit Psychiatric exam: Present: normal affect, normal mood Skin exam: Present: warm, dry, intact Course Vital Signs 02/06/24 13:57 Temperature 98.8 F Pulse Rate 100 Respiratory 18 Rate Blood Pressure 142/79 O2 Sat by Pulse 95 Oximetry Procedures - [place] Protocol (Time Out) Nurse: Subha Burger Medical Decision Making - Medical Decision Making Was pt. sent in by a medical professional or institution (, PA, ASBESTOS WORKER, urgent care, hospital, or retirement...) When possible be specific @ -No Did you speak to anyone other than the patient for history (EMS, parent, family, police, friend...)? What history was obtained from this source @ -No Did you review nursing and triage notes (agree or disagree)? Why? @ -I reviewed and agree with nursing and triage notes Were old charts reviewed (outside hosp., previous admission, EMS record, old EKG, old radiological studies, urgent care reports/EKG's, retirement records)? Report findings @ -No old charts were reviewed Differential Mental Health Depression, anxiety, bipolar, psychosis, schizophrenia, borderline personality, situational depression, adjustment disorder, behavioral disorder, brain tumor, malingering, substance abuse, encephalopathy, medication reaction, dementia, hypothyroidism, degenerative neurologic disorder, lupus.... This is not meant to be all-inclusive list EKG interpreted by me (3pts min.). @ -As above X-rays interpreted by me (1pt min.). @ -None done CT interpreted by me (1pt min.). @ -None done U/S interpreted by me (1pt. min.). @ -None done What testing was considered but not performed or refused? (CT, X-rays, U/S, labs)? Why? @ -None What meds were considered but not given or refused? Why? @ -None Did you discuss the management of the patient with other professionals (professionals i.e. , PA, ASBESTOS WORKER, lab, RT, psych nurse, social media community manager, groundsman, teacher, truant officer, hospice case manager)? Give summary @ -[facility] Was smoking cessation discussed for >3mins.? @ -No Was critical care preformed (if so, how long)? @ -No Were there social determinants of health that impacted care today? How? (Homelessness, low income, unemployed, alcoholism, drug addiction, transportation, low edu. Level, literacy, decrease access to med. care, [facility], rehab)? @ -No Was there de-escalation of care discussed even if they declined (Discuss DNR or withdrawal of care, Hospice)? DNR status @ -No What co-morbidities impacted this encounter? (DM, HTN, Smoking, COPD, CAD, Cancer, CVA, ARF, Chemo, Hep., AIDS, mental health diagnosis, sleep apnea, morbid obesity)? @Alcohol abuse Was patient admitted / discharged? Hospital course, mention meds given and route, prescriptions, significant lab abnormalities, going to OR and other pertinent info. @ -[h 38-year-old male presenting with acute alcohol intoxication. Vital signs are stable. No physical complaints. Patient's serum alcohol is 412. Patient will be admitted with acute intoxication. Undiagnosed new problem with uncertain prognosis? @ -No Drug Therapy requiring intensive monitoring for toxicity (Heparin, Nitro, Insulin, Cardizem)? @ -No Were any procedures done? @ -No Diagnosis/symptom? @ -Acute alcohol intoxication Acute, or Chronic, or Acute on Chronic? @ -Default Uncomplicated (without systemic symptoms) or Complicated (systemic symptoms)? @ -Default Side effects of treatment? @ -No Exacerbation, Progression, or Severe Exacerbation? @ -No Poses a threat to life or bodily function? How? (Chest pain, [place], [place], pneumonia, PE, COPD, DKA, ARF, appy, cholecystitis, CVA, Diverticulitis, Homicidal, Suicidal, threat to staff... and all critical care pts) @ -[Yes, alcohol poisoning, alcohol withdrawal, delirium tremens - Lab Data Result diagrams: 02/06/24 14:51 02/06/24 14:51 Lab Results 02/06/24 02/06/24 02/06/24 Range/Units 14:30 14:51 14:51 WBC 9.0 (3.8-10.6) k/uL RBC 4.60 (4.30-5.90) m/uL Hgb 14.0 (13.0-17.5) gm/dL Hct 43.0 (39.0-53.0) % MCV 93.5 (80.0-100.0) fL MCH 30.5 (25.0-35.0) pg MCHC 32.6 (31.0-37.0) g/dL RDW 13.2 (11.5-15.5) % Plt Count 297 (150-450) k/uL MPV 7.0 Neutrophils % 59 % Lymphocytes % 35 % Monocytes % 3 % Eosinophils % 1 % Basophils % 0 % Neutrophils # 5.3 (1.3-7.7) k/uL Lymphocytes # 3.1 (1.0-4.8) k/uL Monocytes # 0.3 (0-1.0) k/uL Eosinophils # 0.1 (0-0.7) k/uL Basophils # 0.0 (0-0.2) k/uL Sodium 150 H (137-145) mmol/L Potassium 4.5 (3.5-5.1) mmol/L Chloride 112 H (98-107) mmol/L Carbon Dioxide 24 (22-30) mmol/L Anion Gap 14 mmol/L BUN 6 L (9-20) mg/dL Creatinine 0.78 (0.66-1.25) mg/dL Est GFR (CKD-EPI)AfAm >90 (>60 ml/min/1.73 sqM) Est GFR (CKD-EPI)NonAf >90 (>60 ml/min/1.73 sqM) Glucose 109 H (74-99) mg/dL Calcium 9.7 (8.4-10.2) mg/dL Magnesium 2.1 (1.6-2.3) mg/dL Total Bilirubin 0.5 (0.2-1.3) mg/dL AST 41 (17-59) U/L ALT 28 (4-49) U/L Alkaline Phosphatase 68 (38-126) U/L Total Protein 7.8 (6.3-8.2) g/dL Albumin 4.7 (3.5-5.0) g/dL Urine Opiates Screen Not Detected (NotDetected) Ur Oxycodone Screen Not Detected (NotDetected) Urine Methadone Screen Not Detected (NotDetected) Ur Barbiturates Screen Not Detected (NotDetected) U Tricyclic Antidepress Not Detected (NotDetected) Ur Phencyclidine Scrn Not Detected (NotDetected) Ur Amphetamines Screen Not Detected (NotDetected) U Methamphetamines Scrn Not Detected (NotDetected) U Benzodiazepines Scrn Not Detected (NotDetected) Urine Cocaine Screen Not Detected (NotDetected) U Marijuana (THC) Screen Detected H (NotDetected) Serum Alcohol 412 H* mg/dL Disposition Clinical Impression: Alcohol intoxication Disposition: ADMITTED IP TO THIS [facility] Condition: Stable Is patient prescribed a controlled substance at d/c from ED?: No Referrals: [facility] [Primary Care Provider] - 1-2 days Time of Disposition: 16:18
[2024-02-06] MEDS: SODIUM CHLORIDE 0.9% 1,000 ML IV SCH (16:26)
[2024-02-06] MEDS ORDERED: NON FORMULARY DRUG (Tadalafil [Tadalafil] 5 MG Tablet) PO PRN (16:51)
[2024-02-06] MEDS ORDERED: LORazepam 0.5 MG TAB PO PRN (16:54)
[2024-02-06] MEDS: DEXTROSE 5%-0.45% NACL 1,000 ML IV SCH (17:05)
--- NOTE | 2024-02-06 17:27 | P.HPIM ---
History of Present Illness H&P Date: 02/06/24 History of Presenting Illness: Patient is a 38-year-old male with a past medical history of daily alcohol abuse, alcoholic pancreatitis, nicotine dependence, cannabinoid use, ADHD, and anxiety. He presented to the emergency department with a chief complaint of acute alcohol intoxication requesting assistance with medical detox and finding placement in rehab. Patient reported drinking approximately one fifth of liquor daily. He denied history of alcohol withdrawal seizures or previous admission to ICU for detox. Patient currently free from any other complaints at this time. Upon arrival to our facility, patient underwent evaluation in the emergency department. Vital signs upon arrival show blood pressure 142/79, heart rate 100, respiratory rate 18, temp 98.8 F, and SpO2 of 95% on room air. Labs were completed and reviewed. CBC was unremarkable. BMP showing hyponatremia with sodium of 150 and high anion gap metabolic acidosis with chloride 112, bicarb of 24, and anion gap of 14. Blood glucose was 109. Magnesium 2.1. Liver profile unremarkable. Urine drug screen was positive for marijuana otherwise negative. Serum alcohol level was elevated at 412. Patient admitted under our services to observation unit for assistance with medical detox. Review of systems: Pertinent positives and negatives as discussed in HPI, a complete review of systems was performed and all other systems are negative. Physical exam: Vital signs reviewed and stable. General: Nontoxic, no distress and appears stated age. Derm: Skin warm and dry, normal coloration for ethnicity. Head: Atraumatic, normocephalic and symmetric. Eyes: EOM's intact, no lid lag, and anicteric sclera Mouth: no lip lesions, mucus membranes moist Cardiovascular: regular rate and rhythm with normal S1S2, no murmur, positive posterior tibial pulses bilaterally, and cap refill < 2 seconds. Lungs: Respirations even, regular, and unlabored on room air. Lungs CTA bilaterally, no rhonchi, no rales, no wheezing, and no accessory muscle usage. Abdominal: soft, nontender to palpation, no guarding, no appreciable organomegaly Ext: ROM intact. No gross muscle atrophy, no edema, no contractures Neuro: Speech clear, face symmetrical and CN II-XII grossly intact with no noted focal neuro deficits Psych: Alert and oriented to person, place, time, and situation. Appropriate and pleasant affect. Assessment and Plan of Care: Alcohol intoxication in active alcoholic with blood alcohol level greater than 400 Hypernatremia High anion gap metabolic acidosis Nicotine dependence Cannabinoid use disorder ADHD Anxiety History of alcoholic pancreatitis -Alcohol level 412 upon arrival. -Order placed for monitoring of CIWA scores and patient to be medicated with Ativan 0.5 mg every 4 hours as needed for CIWA score of 4-5, Ativan 1 mg every 4 hours for CIWA score of 6-7, Ativan 2 mg every 3 hours CIWA score of 8-9, and Ativan 2 mg every 2 hours forr CIWA score of 10 or greater. -Continuous IV hydration D5 0.45% normal saline at 100 cc/h. Order placed for repeat potassium at 11 PM and again tomorrow morning, changes may be made to infusion rate based upon these findings. -Thiamine 100 mg daily, and Multivitamin daily, and Folate 1 mg daily -Seizure, fall, aspiration, and elopement precautions in place. -Urine drug screen positive for marijuana otherwise negative. -Continued close monitoring of electrolytes and replace as needed. -Telemetry monitoring. -Order placed for nicotine patch 21 mg daily and recommend smoking cessation. Data and imaging reviewed: As stated above in HPI CODE STATUS: Full code DVT prophylaxis: Lovenox Anticipated discharge date: Pending clinical course Anticipated discharge place: Home Patient was seen independently by Nurse Practitioner. This document was prepared using [employer] dictation software. Please allow for errors in 2nd pressman while rare they do occur. I reviewed the documentation as provided by the BERT above, who is the original author of this note. I agree with the documented assessment and plan, with the following changes: none Past Medical History Past Medical History: No Reported History Additional Past Medical History / Comment(s): panceratitis History of Any Multi-Drug Resistant Organisms: None Reported Past Surgical History: No Surgical Hx Reported Past Anesthesia/Blood Transfusion Reactions: No Reported Reaction Past Psychological History: ADD/ADHD, Anxiety Smoking Status: Current every day smoker, Vaper Past Alcohol Use History: Daily, Heavy, Occasional Past Drug Use History: None Reported Medications and Allergies Home Medications Medication Instructions Recorded Confirmed Type Naltrexone HCl [Revia] 50 mg PO DAILY 14 Days #14 tab 04/18/23 02/06/24 Rx ARIPiprazole [Abilify Asimtufii] 960 mg IM Q56D 02/06/24 02/06/24 History Albuterol Inhaler [Ventolin Hfa 1 - 2 puff INHALATION RT-Q4H PRN 02/06/24 02/06/24 History Inhaler] Ciclesonide [Alvesco] 2 puff INHALATION RT-BID 02/06/24 02/06/24 History Escitalopram [Lexapro] 20 mg PO DAILY 02/06/24 02/06/24 History hydrOXYzine pamoate [Vistaril] 50 mg PO BID 02/06/24 02/06/24 History tadalafiL 5 mg PO DAILY PRN 02/06/24 02/06/24 History Allergies Allergy/AdvReac Type Severity Reaction Status Date / Time ondansetron Allergy Rash/Hives Verified 02/06/24 14:00 [From Zofran (as hydrochloride)] Physical Exam Osteopathic Statement: *. No significant issues noted on an osteopathic structural exam other than those noted in the History and Physical/Consult. Vitals: Vital Signs Temp Pulse Resp BP Pulse Ox 02/06/24 13:57 98.8 F 100 18 142/79 95 Intake and Output 02/06/24 02/06/24 02/06/24 06:59 14:59 22:59 Other: Weight 81.647 kg Results CBC & Chem 7: 02/06/24 14:51 02/06/24 14:51 Labs: Abnormal Lab Results - Last 24 Hours (Table) 02/06/24 02/06/24 Range/Units 14:30 14:51 Sodium 150 H (137-145) mmol/L Chloride 112 H (98-107) mmol/L BUN 6 L (9-20) mg/dL Glucose 109 H (74-99) mg/dL U Marijuana (THC) Screen Detected H (NotDetected) Serum Alcohol 412 H* mg/dL
[2024-02-06] MEDS: THIAMINE 100 MG/ML 2 ML VIAL IM STA (19:30)
[2024-02-06] MEDS: FLUTICASONE 110 MCG INHALER INHALATION SCH (19:41)
[2024-02-06] MEDS: LORazepam 1 MG TAB PO PRN (20:15)
[2024-02-06] MEDS: NICOTINE 21MG/24HR PATCH TRANSDERM SCH (20:22)
[2024-02-06 22:44] LABS: African American GFR (CKD) >90 (>60 ml/min/1.73 sqM); Anion Gap 11 mmol/L; Blood Urea Nitrogen 7 mg/dL (9-20); Calcium 8.8 mg/dL (8.4-10.2); Carbon Dioxide 26 mmol/L (22-30); Chloride 112 mmol/L (98-107); Glucose 101 mg/dL (74-99); Non-African American GFR(CKD) >90 (>60 ml/min/1.73 sqM); Potassium 3.8 mmol/L (3.5-5.1); Sodium 149 mmol/L (137-145)
[2024-02-07 04:34] VITALS: PULSE 71
[2024-02-07 08:14] VITALS: BP 127/81; RESP 16; TEMP 98.3
[2024-02-07] MEDS: ENOXAPARIN 40 MG/0.4 ML SYRINGE SQ SCH (09:05)
[2024-02-07] MEDS: LORazepam 2 MG/ML INJ IV STA (09:12)
[2024-02-07] MEDS: MULTIVITAMINS, THERA 1 EACH TAB PO SCH (09:14)
[2024-02-07] MEDS: THIAMINE 100 MG TAB PO SCH (09:14)
[2024-02-07] MEDS: FOLIC ACID 1 MG TAB PO SCH (09:14)
[2024-02-07 09:15] LABS: HCT 38.9 % (39.6-50.0); MCHC 33.4 g/dL (32.0-37.0); MCV 92.6 FL (80.0-97.0); Mean Platelet Volume 9.7 FL (9.5-12.2); NRBC Per 100 WBC 0 X 10*3/uL (0.00-0.01); Platelet Count 261 X 10*3/uL (140-440); RDW 13.3 % (11.5-14.5); WBC 7.27 X 10*3/uL (4.50-10.00)
[2024-02-07] MEDS: ESCITALOPRAM 20 MG TAB PO SCH (09:15)
[2024-02-07] MEDS: NALTREXONE HCL 50 MG TAB PO SCH (09:15)
[2024-02-07 09:44] LABS: ALT 21 U/L (10-49); AST 24 U/L (14-35); Alkaline Phosphatase 71 U/L (41-126); BUN/Creat Ratio 11.88 Ratio (12.00-20.00); Blood Urea Nitrogen 9.5 mg/dL (9.0-27.0); Calcium 8.8 mg/dL (8.7-10.3); Carbon Dioxide 23.1 mmol/L (21.6-31.8); Chloride 111 mmol/L (96-109); Globulin 2.5 g/dL (1.6-3.3); Glucose 88 mg/dL (70-110); Magnesium 1.9 mg/dL (1.5-2.4); Potassium 3.8 mmol/L (3.5-5.5); Sodium 147 mmol/L (135-145); Total Bilirubin <0.2 mg/dL (0.3-1.2); Total Protein 6.5 g/dL (6.2-8.2)
--- NOTE | 2024-02-07 10:17 | P.DS ---
Providers Date of admission: 02/06/24 16:15 Expected date of discharge: 02/07/24 Attending physician: Chuck Butts MD Primary care physician: [facility] Hospital Course: Discharge Diagnosis: Alcohol intoxication in active alcoholic with blood alcohol level greater than 400. Patient is clinically sober at this time. Sodium remains elevated at 147, however patient adamant regarding discharge. Patient states he has things to do before he makes his appointment at [place] and will call for appointment once he gets home. Patient strongly encouraged to avoid any and all alcohol use. Hypernatremia High anion gap metabolic acidosis Nicotine dependence Cannabinoid use disorder ADHD Anxiety History of alcoholic pancreatitis Hospital Course: Patient is a 38-year-old male with a past medical history of daily alcohol abuse, alcoholic pancreatitis, nicotine dependence, cannabinoid use, ADHD, and anxiety. He presented to the emergency department with a chief complaint of acute alcohol intoxication requesting assistance with medical detox and finding placement in rehab. Patient reported drinking approximately one fifth of liquor daily. He denied history of alcohol withdrawal seizures or previous admission to ICU for detox. Patient currently free from any other complaints at this time. Upon arrival to our facility, patient underwent evaluation in the emergency department. Vital signs upon arrival show blood pressure 142/79, heart rate 100, respiratory rate 18, temp 98.8 F, and SpO2 of 95% on room air. Labs were completed and reviewed. CBC was unremarkable. BMP showing hyponatremia with sodium of 150 and high anion gap metabolic acidosis with chloride 112, bicarb of 24, and anion gap of 14. Blood glucose was 109. Magnesium 2.1. Liver profile unremarkable. Urine drug screen was positive for marijuana otherwise negative. Serum alcohol level was elevated at 412. Patient admitted under our services to observation unit for assistance with medical detox. Patient was started on D5 0.45% saline infusion to slowly decrease sodium level. Sodium levels were trended resulting at 158, 149, and 147. High anion gap metabolic acidosis improving with chloride of 111, bicarb 23.1, and anion gap of 12.90. Patient is clinically sober at this time. Sodium remains elevated at 147, however patient adamant regarding discharge. Patient states he has things to do before he makes his appointment at [place] and will call for appointment once he gets home. Patient strongly encouraged to avoid any and all alcohol use. Physical exam: Vital signs reviewed and stable. General: Nontoxic, no distress and appears stated age. Derm: Skin warm and dry, normal coloration for ethnicity. Head: Atraumatic, normocephalic and symmetric. Eyes: EOM's intact, no lid lag, and anicteric sclera Mouth: no lip lesions, mucus membranes moist Cardiovascular: regular rate and rhythm with normal S1S2, no murmur, positive posterior tibial pulses bilaterally, and cap refill < 2 seconds. Lungs: Respirations even, regular, and unlabored on room air. Lungs CTA bilaterally, no rhonchi, no rales, no wheezing, and no accessory muscle usage. Abdominal: soft, nontender to palpation, no guarding, no appreciable organo megaly Ext: ROM intact. No gross muscle atrophy, no edema, no contractures Neuro: Speech clear, face symmetrical and CN II-XII grossly intact with no noted focal neuro deficits Psych: Alert and oriented to person, place, time, and situation. Appropriate and pleasant affect. A total of 33 minutes of time were spent preparing this complex discharge summary. Pt was discharged on 02/07/2024 at 10:15 AM. Patient was seen independently by Nurse Practitioner. This document was prepared using [employer] dictation software. Please allow for errors in manganese breaker while rare they do occur. I reviewed the documentation as provided by the BERT above, who is the original author of this note. I agree with the documented assessment and plan, with the following changes: none Patient Condition at Discharge: Stable Plan - Discharge Summary Discharge Rx Participant: Yes New Discharge Prescriptions: Continue Albuterol Inhaler [Ventolin Hfa Inhaler] 1 - 2 puff INHALATION RT-Q4H PRN PRN Reason: Shortness Of Breath hydrOXYzine pamoate [Vistaril] 50 mg PO BID Ciclesonide [Alvesco] 2 puff INHALATION RT-BID tadalafiL 5 mg PO DAILY PRN PRN Reason: E.D. Naltrexone HCl [Revia] 50 mg PO DAILY 14 Days #14 tab Escitalopram [Lexapro] 20 mg PO DAILY ARIPiprazole [Abilify Asimtufii] 960 mg IM Q56D Discharge Medication List Naltrexone HCl [Revia] 50 mg PO DAILY 14 Days #14 tab 04/18/23 [Rx] ARIPiprazole [Abilify Asimtufii] 960 mg IM Q56D 02/06/24 [History] Albuterol Inhaler [Ventolin Hfa Inhaler] 1 - 2 puff INHALATION RT-Q4H PRN 02/06/24 [History] Ciclesonide [Alvesco] 2 puff INHALATION RT-BID 02/06/24 [History] Escitalopram [Lexapro] 20 mg PO DAILY 02/06/24 [History] hydrOXYzine pamoate [Vistaril] 50 mg PO BID 02/06/24 [History] tadalafiL 5 mg PO DAILY PRN 02/06/24 [History] Follow up Appointment(s)/Referral(s): [facility] [Primary [facility] Provider] - 1-2 days Patient Instructions/Handouts: Abuse of Alcohol (DC), Alcohol Withdrawal (DC) Activity/Diet/Wound Care/Special Instructions: Activity: As tolerated. Take breaks as needed. Diet: Resume regular diet. Special Instructions: Strongly recommend avoiding any and all alcohol use and scheduling inpatient appointment as we discussed at [place] for alcohol rehab. Wishing you the best on your journey towards sobriety. Thank you for allowing us to participate in your care, it was truly a pleasure having you for our patient!!! Discharge/Stand Alone Forms: AA Meetings Dist & 24 - [facility], Outpatient Counseling, Inp Substance Abuse Facilities, Personal Transmission Technician Discharge Disposition: HOME SELF-CARE
== END 2024-02-07 10:32 | disposition home or self-care (01) ==
LOC: EC 13:54 → 6NMEDSUR 16:15
PROVIDERS: ADMIT Internal Medicine; ATTEND Internal Medicine
DX: F10.229 Alcohol dependence with intoxication, unspecified (principal); E87.1 Hypo-osmolality and hyponatremia; E87.20 Acidosis, unspecified; F12.90 Cannabis use, unspecified, uncomplicated; Y90.8 Blood alcohol level of 240 mg/100 ml or more; F17.290 Nicotine dependence, other tobacco product, uncomplicated; F90.9 Attention-deficit hyperactivity disorder, unspecified type; F41.9 Anxiety disorder, unspecified; Z79.51 Long term (current) use of inhaled steroids; Z79.899 Other long term (current) drug therapy; Z88.8 Allergy status to other drugs, medicaments and biological substances; Z87.19 Personal history of other diseases of the digestive system
CPT/HCPCS: 36415; 80048; 80053; 80306; 80320; 82075; 83735; 85025; 85027; 94640; 96361; 96372; 96374; 96376; 99285

== ENCOUNTER 2024-03-12 22:08 | Inpatient (IN) | payer BC, OTHER ==
[2024-03-12] MEDS: IV FLUID CONTINUATION 500 ML IV ONE (11:31)
[2024-03-12] MEDS: LACTATED RINGERS 1,000 ML IV ONE (11:31)
[2024-03-12] MEDS: fentaNYL (PF) 50 MCG/ML 2 ML AMP IVP STA (22:26)
[2024-03-12 22:50] LABS: Basophils % (A) 0 %; Eosinophils % (A) 0 %; HCT 39.3 % (39.0-53.0); HGB 12.7 gm/dL (13.0-17.5); Lymphocytes # (A) 1.4 k/uL (1.0-4.8); Lymphocytes % (A) 8 %; MCH 30.6 pg (25.0-35.0); MCHC 32.4 g/dL (31.0-37.0); MCV 94.6 fL (80.0-100.0); Mean Platelet Volume 7.4; Monocytes # (A) 0.4 k/uL (0-1.0); Monocytes % (A) 2 %; Neutrophils # (A) 15.2 k/uL (1.3-7.7); Neutrophils % (A) 88 %; Platelet Count 246 k/uL (150-450); RBC 4.16 m/uL (4.30-5.90); RDW 12.6 % (11.5-15.5); WBC 17.2 k/uL (3.8-10.6)
[2024-03-12 23:02] LABS: INR 0.9 (<1.2)
[2024-03-12 23:04] LABS: Partial Thromboplastin Time 19.9 sec (22.0-30.0)
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
[2024-03-12 23:17] LABS: ALT 107 U/L (4-49); African American GFR (CKD) >90 (>60 ml/min/1.73 sqM); Albumin 4.4 g/dL (3.5-5.0); Alkaline Phosphatase 50 U/L (38-126); Blood Urea Nitrogen 17 mg/dL (9-20); Calcium 9.2 mg/dL (8.4-10.2); Carbon Dioxide 23 mmol/L (22-30); Non-African American GFR(CKD) >90 (>60 ml/min/1.73 sqM); Sodium 143 mmol/L (137-145); Total Protein 7.1 g/dL (6.3-8.2)
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
[2024-03-12] MEDS ORDERED: HYDROmorphone (PF) 1 MG/ML ONE (23:21)
[2024-03-12] MEDS ORDERED: fentaNYL (PF) 50 MCG/ML 2 ML AMP ONE (23:21)
[2024-03-12] MEDS ORDERED: SUCCINYLCHOLINE CHLORIDE 200 MG/10 ML VIAL IV ONE (23:21)
[2024-03-12] MEDS ORDERED: ROCURONIUM 10 MG/ML (5 ML VIAL) IV ONE (23:21)
[2024-03-12] MEDS ORDERED: SUGAMMADEX SODIUM 200 MG/2 ML SDV IV ONE (23:21)
[2024-03-12] MEDS ORDERED: ETOMIDATE 2 MG/ML 10 ML VIAL ONE (23:21)
--- NOTE | 2024-03-12 23:28 | CT ---
EXAM: CT Chest With Intravenous Contrast CLINICAL HISTORY: trauma TECHNIQUE: Axial computed tomography images of the chest with intravenous contrast. CTDI is 8.1 mGy and DLP is 666 mGy-cm. This CT exam was performed using one or more of the following dose reduction techniques: automated exposure control, adjustment of the mA and/or kV according to patient size, and/or use of iterative reconstruction technique. COMPARISON: CTA chest with contrast 07/20/2020 FINDINGS: Limitations: There is respiratory artifact, which degrades image quality on multiple image slices. Lungs: No definite pulmonary contusive injury or focal consolidation identified. Minimal dependent subsegmental atelectatic changes. No mass. Pleural space: Unremarkable. No pneumothorax. No significant effusion. Heart: The cardiac chambers are normal in size. No pericardial effusion. No significant coronary artery calcifications. Mediastinum: No mediastinal traumatic injury. Bones/joints: The osseous structures of the thorax are intact without acute osseous traumatic injury. No dislocation. Soft tissues: No significant overlying acute traumatic soft tissue abnormality. Vasculature: The thoracic aorta is normal in caliber without evidence for acute periaortic traumatic injury. Stable ectasia of the ascending aorta, measuring 3.9 x 4.1 cm. The aortic arch and descending aorta are intact. No dissection. Lymph nodes: Unremarkable. No enlarged lymph nodes. IMPRESSION: No definite significant acute traumatic injury identified involving the chest/thorax. EXAM: CT Abdomen and Pelvis With Intravenous Contrast CLINICAL HISTORY: trauma TECHNIQUE: Axial computed tomography images of the abdomen and pelvis with intravenous contrast. CTDI is 15.8 mGy and DLP is 1171.7 mGy-cm. This CT exam was performed using one or more of the following dose reduction techniques: automated exposure control, adjustment of the mA and/or kV according to patient size, and/or use of iterative reconstruction technique. COMPARISON: No relevant prior studies available. FINDINGS: Lung bases: For findings regarding the lung bases, please see the CT report of the chest performed concurrently. ABDOMEN: Liver: There is a traumatic laceration with hyperdense intervening fluid involving the left lobe of the liver, extending over a length of approximately 5.9 cm. Extensive perihepatic and perisplenic hypodense fluid noted. There is also a rounded hypoattenuating area involving segment IVb of the liver, measuring 2.2 cm x 1.7 cm. This is not definitive for a traumatic injury; however, no prior imaging available to ensure stability. Gallbladder and bile ducts: Unremarkable. No calcified stones. No ductal dilation. Pancreas: Unremarkable. No mass. No ductal dilation. Spleen: The spleen is intact without evidence for traumatic injury. The spleen is intact without evidence for acute traumatic injury. Adrenals: Unremarkable. No mass. Kidneys and ureters: The kidneys appear intact without evidence for acute traumatic injury. Delayed phase imaging demonstrates normal excreted contrast in the renal collecting systems and ureters without evidence for traumatic injury. No hydronephrosis. Stomach and bowel: Evaluation of bowel is somewhat limited with hemoperitoneum. No bowel obstruction. No obvious asymmetric bowel mucosal abnormality. No obvious hematoma involving the central mesentery. PELVIS: Appendix: No findings to suggest acute appendicitis. Bladder: Unremarkable. No mass. Reproductive: Unremarkable as visualized. ABDOMEN and PELVIS: Intraperitoneal space: Moderate intermediate density fluid throughout the abdomen and pelvis consistent with hemoperitoneum. There are irregular more solid-appearing hyperdense collections involving the lateral left abdomen and anterolateral pelvis, measuring up to 7.4 x 5.5 cm in the left abdomen. No free air. Retroperitoneal space: No evidence for retroperitoneal hematoma. Bones/joints: The lumbar spine, pelvic bones and proximal femurs are intact. No acute fracture. No dislocation. Soft tissues: No significant overlying acute traumatic soft tissue abnormality identified. Vasculature: The aorta is normal in caliber without evidence for traumatic injury. No abdominal aortic aneurysm. Lymph nodes: Unremarkable. No enlarged lymph nodes. IMPRESSION: 1. Moderate intermediate density fluid throughout the abdomen and pelvis consistent with hemoperitoneum. There are irregular more solid-appearing hyperdense collections involving the lateral left abdomen and anterolateral pelvis, measuring up to 7.4 x 5.5 cm in the left abdomen. Findings are consistent with a more solid hematoma components within the hemoperitoneum. No definite active extravasation on this portal phase examination. No appreciable alteration in size in the hematoma when compared to the delayed phase imaging. 2. There is a traumatic laceration with hyperdense intervening fluid involving the left lobe of the liver, extending over a length of approximately 5.9 cm. Extensive perihepatic and perisplenic hypodense fluid noted. Findings are consistent with grade 3 injury of the liver. <MYCVCSECTION> Communications: 03/12/24 23:34 Call Doctor Regarding Traumatic solid organ or bowel injuries, called Dr. Ray on 03/12 23:34 (-04:00)
--- NOTE | 2024-03-12 23:29 | XR ---
EXAM: XR Pelvis, 1 or 2 Views CLINICAL HISTORY: ITS.REASON XR Reason: Trauma TECHNIQUE: Frontal view of the pelvis. COMPARISON: No relevant prior studies available. FINDINGS: Bones/joints: Unremarkable. No acute fracture. No dislocation. Soft tissues: Unremarkable. Other findings: Mild excreted contrast in the bladder. IMPRESSION: Negative radiographic evaluation of the pelvis.
[2024-03-12 23:36] LABS: AST 65 U/L (17-59); Anion Gap 13 mmol/L; Chloride 107 mmol/L (98-107); Glucose 133 mg/dL (74-99); Potassium 4.7 mmol/L (3.5-5.1); Total Bilirubin 0.2 mg/dL (0.2-1.3)
[2024-03-12 23:48] LABS: Alcohol 126 mg/dL
[2024-03-12] MEDS: METOCLOPRAMIDE 5 MG/ML 2 ML VIAL IVP STA (23:57)
[2024-03-12] MEDS: diphenhydrAMINE 50 MG/ML 1 ML VIAL IVP STA (23:57)
[2024-03-12] MEDS: SODIUM CHLORIDE 0.9% 1,000 ML IV STA (23:57)
[2024-03-12] MEDS: DIPH,PERTUS(ACELL)TETVAC-LF 0.5 ML VIAL IM ONE (23:58)
[2024-03-12] MEDS: SODIUM CHLORIDE 0.9% 1,000 ML IV ONE (23:58)
[2024-03-13] MEDS: metroNIDAZOLE-NS PMX 500 MG in SALINE 1 100ML.BAG IVPB STA
[2024-03-13] MEDS: HYDROmorphone 0.5 MG/0.5 ML SYRINGE IVP STA
[2024-03-13] MEDS ORDERED: NALOXONE 0.4 MG/ML 1 ML VIAL IV PRN (00:08)
[2024-03-13] MEDS: LACTATED RINGERS 1,000 ML IV ONE ×4 (00:15)
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
[2024-03-13] MEDS: cefTRIAXone IN SWFI 1,000 MG/10 ML SYRINGE IVP STA (00:57)
[2024-03-13 01:14] LABS: Glucose,Whole Blood 131 mg/dL (70-110)
[2024-03-13] MEDS ORDERED: LORazepam 2 MG/ML INJ IV PRN ×3 (01:19)
[2024-03-13 02:06] LABS: Amphetamine Screen,Urine Not Detected (NotDetected); Barbiturate Screen,Urine Not Detected (NotDetected); Benzodiazepines Screen,Urine Not Detected (NotDetected); Cocaine Screen,Urine Not Detected (NotDetected); Methadone Screen, Urine Not Detected (NotDetected); Opiate Screen,Urine Detected (NotDetected); Oxycodone Screen, Urine Not Detected (NotDetected); Phencyclidine Screen,Urine Not Detected (NotDetected); Tricyclic Antidepressant,Urine Not Detected (NotDetected); Urn Cannabinoid Scrn Detected (NotDetected)
[2024-03-13] MEDS: HYDROmorphone 2 MG/ML 1 ML SYRINGE IVP PRN ×2 (02:07→09:40)
[2024-03-13 02:15] LABS: Basophils % (A) 0 %; Eosinophils % (A) 0 %; Lymphocytes # (A) 1.3 k/uL (1.0-4.8); Lymphocytes % (A) 9 %; MCH 32.2 pg (25.0-35.0); MCHC 34.3 g/dL (31.0-37.0); MCV 93.6 fL (80.0-100.0); Mean Platelet Volume 7.9; Monocytes # (A) 0.6 k/uL (0-1.0); Monocytes % (A) 4 %; Neutrophils % (A) 86 %; Platelet Count 195 k/uL (150-450); RBC 3.74 m/uL (4.30-5.90); RDW 13.3 % (11.5-15.5); WBC 15.1 k/uL (3.8-10.6)
[2024-03-13 02:41] LABS: Basophils % (A) 0 %; Eosinophils % (A) 0 %; HCT 34.8 % (39.0-53.0); Lymphocytes # (A) 1.4 k/uL (1.0-4.8); Lymphocytes % (A) 8 %; MCH 32.2 pg (25.0-35.0); MCHC 34.6 g/dL (31.0-37.0); MCV 93.3 fL (80.0-100.0); Monocytes # (A) 0.7 k/uL (0-1.0); Monocytes % (A) 4 %; Neutrophils # (A) 15.8 k/uL (1.3-7.7); Neutrophils % (A) 87 %; Platelet Count 201 k/uL (150-450); RBC 3.74 m/uL (4.30-5.90); RDW 13.2 % (11.5-15.5); WBC 18.2 k/uL (3.8-10.6)
[2024-03-13 05:59] LABS: African American GFR (CKD) >90 (>60 ml/min/1.73 sqM); Anion Gap 4 mmol/L; Blood Urea Nitrogen 16 mg/dL (9-20); Calcium 8.3 mg/dL (8.4-10.2); Carbon Dioxide 26 mmol/L (22-30); Chloride 109 mmol/L (98-107); Glucose 109 mg/dL (74-99); Non-African American GFR(CKD) >90 (>60 ml/min/1.73 sqM); Sodium 139 mmol/L (137-145)
[2024-03-13 07:10] LABS: Basophils % (A) 0 %; Eosinophils % (A) 0 %; HCT 37.6 % (39.0-53.0); HGB 12.1 gm/dL (13.0-17.5); Lymphocytes # (A) 1.6 k/uL (1.0-4.8); Lymphocytes % (A) 8 %; MCHC 32.2 g/dL (31.0-37.0); MCV 96.3 fL (80.0-100.0); Mean Platelet Volume 8.1; Monocytes # (A) 0.9 k/uL (0-1.0); Monocytes % (A) 5 %; Neutrophils # (A) 17.1 k/uL (1.3-7.7); Neutrophils % (A) 86 %; Platelet Count 195 k/uL (150-450); RBC 3.91 m/uL (4.30-5.90); RDW 12.8 % (11.5-15.5); WBC 19.8 k/uL (3.8-10.6)
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
[2024-03-13] MEDS: LACTATED RINGERS 1,000 ML IV SCH (12:15)
[2024-03-13] MEDS: HYDROcodone/APAP 10-325MG 1 EACH TAB PO PRN (12:15)
[2024-03-13] MEDS: KETOROLAC 15 MG/ML 1 ML VIAL IVP SCH (12:22)
[2024-03-13] MEDS: PANTOPRAZOLE 40 MG/10 ML VIAL IVP SCH (12:23)
[2024-03-13] MEDS: methocarbamoL 750 MG TAB PO SCH (13:27)
[2024-03-14 05:56] LABS: Basophils % (A) 0 %; Eosinophils # (A) 0.2 k/uL (0-0.7); Eosinophils % (A) 1 %; HCT 30.9 % (39.0-53.0); HGB 10.5 gm/dL (13.0-17.5); Lymphocytes # (A) 1.5 k/uL (1.0-4.8); Lymphocytes % (A) 14 %; MCH 31.7 pg (25.0-35.0); MCHC 33.9 g/dL (31.0-37.0); MCV 93.6 fL (80.0-100.0); Mean Platelet Volume 8.1; Monocytes # (A) 0.6 k/uL (0-1.0); Monocytes % (A) 5 %; Neutrophils # (A) 8.1 k/uL (1.3-7.7); Neutrophils % (A) 77 %; Platelet Count 150 k/uL (150-450); RDW 12.8 % (11.5-15.5); WBC 10.5 k/uL (3.8-10.6)
[2024-03-14 06:09] LABS: ALT 131 U/L (4-49); AST 76 U/L (17-59); African American GFR (CKD) >90 (>60 ml/min/1.73 sqM); Albumin 2.8 g/dL (3.5-5.0); Alkaline Phosphatase 54 U/L (38-126); Anion Gap 0 mmol/L; Blood Urea Nitrogen 13 mg/dL (9-20); Calcium 8.3 mg/dL (8.4-10.2); Carbon Dioxide 28 mmol/L (22-30); Chloride 106 mmol/L (98-107); Glucose 100 mg/dL (74-99); Non-African American GFR(CKD) >90 (>60 ml/min/1.73 sqM); Sodium 134 mmol/L (137-145); Total Bilirubin 0.6 mg/dL (0.2-1.3); Total Protein 5.2 g/dL (6.3-8.2)
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
[2024-03-14] MEDS: HYDROmorphone 2 MG/ML 1 ML SYRINGE IVP PRN (14:45)
[2024-03-15 03:32] LABS: ALT 136 U/L (4-49); AST 71 U/L (17-59); African American GFR (CKD) >90 (>60 ml/min/1.73 sqM); Albumin 2.8 g/dL (3.5-5.0); Alkaline Phosphatase 49 U/L (38-126); Anion Gap 2 mmol/L; Blood Urea Nitrogen 15 mg/dL (9-20); Calcium 8.3 mg/dL (8.4-10.2); Carbon Dioxide 27 mmol/L (22-30); Chloride 107 mmol/L (98-107); Glucose 125 mg/dL (74-99); Non-African American GFR(CKD) >90 (>60 ml/min/1.73 sqM); Potassium 3.6 mmol/L (3.5-5.1); Sodium 136 mmol/L (137-145); Total Bilirubin 0.3 mg/dL (0.2-1.3); Total Protein 5.2 g/dL (6.3-8.2)
[2024-03-15 03:36] LABS: Basophils % (A) 0 %; Eosinophils # (A) 0.3 k/uL (0-0.7); Eosinophils % (A) 4 %; HGB 9.9 gm/dL (13.0-17.5); Lymphocytes # (A) 1.2 k/uL (1.0-4.8); Lymphocytes % (A) 16 %; MCH 32.1 pg (25.0-35.0); MCV 94.4 fL (80.0-100.0); Mean Platelet Volume 7.5; Monocytes # (A) 0.4 k/uL (0-1.0); Monocytes % (A) 5 %; Neutrophils # (A) 5.7 k/uL (1.3-7.7); Neutrophils % (A) 74 %; Platelet Count 158 k/uL (150-450); RBC 3.07 m/uL (4.30-5.90); RDW 12.6 % (11.5-15.5); WBC 7.7 k/uL (3.8-10.6)
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
[2024-03-16] MEDS: SENNOSIDES 8.6 MG TAB PO SCH (07:34)
[2024-03-16 08:41] LABS: HCT 28.3 % (39.6-50.0); HGB 9.3 g/dL (13.0-17.0); MCH 31.1 pg (27.0-32.0); MCHC 32.9 g/dL (32.0-37.0); MCV 94.6 FL (80.0-97.0); Mean Platelet Volume 10.1 FL (9.5-12.2); NRBC Per 100 WBC 0 X 10*3/uL (0.00-0.01); Platelet Count 181 X 10*3/uL (140-440); RBC 2.99 X 10*6/uL (4.40-5.60); WBC 6.71 X 10*3/uL (4.50-10.00)
[2024-03-16 08:59] LABS: BUN/Creat Ratio 23.29 Ratio (12.00-20.00); Blood Urea Nitrogen 16.3 mg/dL (9.0-27.0); Carbon Dioxide 25.4 mmol/L (21.6-31.8); Chloride 104 mmol/L (96-109); Glucose 107 mg/dL (70-110); Potassium 4.1 mmol/L (3.5-5.5); Sodium 139 mmol/L (135-145)
[2024-03-16 09:00] LABS: ALT 99 U/L (10-49); AST 37 U/L (14-35); Albumin 3.2 g/dL (3.8-4.9); Alkaline Phosphatase 51 U/L (41-126); Calcium 8.2 mg/dL (8.7-10.3); Total Bilirubin <0.2 mg/dL (0.3-1.2); Total Protein 5.2 g/dL (6.2-8.2)
[2024-03-16] MEDS ORDERED: DOCUSATE 100 MG CAP PO SCH (11:00)
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
[2024-03-16 13:05] VITALS: BP 124/75; PULSE 82; RESP 16; TEMP 98.8
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
== END 2024-03-16 16:01 | disposition home or self-care (01) | DRG 260 ==
LOC: EC 22:08 → EEVIPCON 22:08 → 2SICU 03-13 00:08 → 4SSUR 03-14 22:13
PROVIDERS: ADMIT Surgery; ATTEND Surgery
PROC: 0W9G0ZZ Drainage of Peritoneal Cavity, Open Approach (ICD-10-PCS; principal; 2024-03-13)
PROC: 0FQ20ZZ Repair Left Lobe Liver, Open Approach (ICD-10-PCS; 2024-03-13)
DX: S36.116A Major laceration of liver, initial encounter (principal); S31.611A Laceration without foreign body of abdominal wall, left upper quadrant with penetration into peritoneal cavity, initial encounter; K66.1 Hemoperitoneum; F11.10 Opioid abuse, uncomplicated; F12.10 Cannabis abuse, uncomplicated; X99.1XXA Assault by knife, initial encounter; Y07.54 Acquaintance or friend, perpetrator of maltreatment and neglect; Z79.899 Other long term (current) drug therapy
CPT/HCPCS: 36415; 36430; 71045; 71260; 72170; 74177; 80048; 80053; 80306; 80320; 83605; 84484; 85025; 85027; 85610; 85730; 86850; 86900; 86901; 86920; 90715; 93005; 94760

== ENCOUNTER 2024-04-23 15:02 | Emergency (ER) | payer BC, OTHER ==
[2024-04-23 15:27] VITALS: RESP 19; TEMP 98
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
[2024-04-23 16:18] VITALS: BP 121/88; PULSE 77
== END 2024-04-23 17:02 | disposition home or self-care (01) ==
LOC: EC 15:02
DX: Z00.00 Encounter for general adult medical examination without abnormal findings (principal); F17.290 Nicotine dependence, other tobacco product, uncomplicated; Z88.8 Allergy status to other drugs, medicaments and biological substances
CPT/HCPCS: 99283